=== PATIENT | male | born 1965 | race Caucasian/White ===

== ENCOUNTER 2016-03-20 19:31 | Emergency (ER) | payer SELFPAY ==
[~2016-03-20] VITALS: Ht 170.2 cm; Wt 72.7 kg
[~2016-03-20 19:31] MED LIST: GENT3.5O18 OU; SULF1TAB23 PO
--- NOTE | 2016-03-20 19:58 | Diagnostic Imaging Report ---
INDICATION: Fall yesterday. Pain and swelling. EXAMINATION: Three views of the right ankle were obtained. FINDINGS: There is considerable swelling over the lateral malleolus. Ankle mortise appears intact. There is suggestion of a very tiny avulsion type fracture of the tip of the fibula. The plafond of the talus is smooth with no fracture. The tibia shows a tiny bony density along the tip of the medial malleolus which could represent tiny avulsion injury or a small accessory ossicle. IMPRESSION: Considerable soft tissue swelling with question of minimal avulsion type fractures of the tip of the medial and lateral malleolus, as described. If clinical symptoms indicate, MRI of the ankle would be sensitive for further evaluation of the fibular and tibial ligaments. Dictated by: Dictated on workstation # [id number]
[2016-03-20] MEDS ORDERED: SULF1TAB35 PO (20:41)
--- NOTE | 2016-03-20 20:41 | ED Lower Extremity ---
General Chief Complaint: Lower Extremity Stated Complaint: R ANKLE INJ Nursing Triage Note: To ED with complaints of right ankle injury yesterday after jumping off his porch to catch his dog. Patient denies any other injuries. Nursing Sepsis Screen: No Definite Risk Source: patient Exam Limitations: no limitations History of Present Illness Time seen by provider: 20:38 Initial Comments To ER with pain to the right ankle. 2 days ago he tripped off of his porch twisting the ankle. He's had significant pain redness and swelling since then. Onset: just prior to arrival Severity: moderate Pain/Injury Location: right ankle Method of Injury: fell, twisted Modifying Factors: Worse With Movement Allergies and Home Medications Allergies Coded Allergies: Penicillins (Verified Allergy, Intermediate, HIVES, 11/08/11) bacitracin (Unverified Allergy, Unknown, 09/19/14) neomycin (Unverified Allergy, Unknown, 09/19/14) polymyxin B (Unverified Allergy, Unknown, 09/19/14) Home Medications Sulfamethoxazole/Trimethoprim 1 Each Tablet #14 1 EACH PO BID Prescribed by: SAWYER ADAM on 03/20/162040 Constitutional: see HPI EENTM: see HPI Cardiovascular: no symptoms reported Genitourinary: no symptoms reported Musculoskeletal: see HPI Skin: no symptoms reported Psychiatric/Neurological: No Symptoms Reported Past Rjbqsmp-Cuvpon-Coctdc Hx Patient Social History Alcohol Use: Denies Use Recreational Drug Use: No Smoking Status: Never a Smoker Former Smoker/When Quit: Nov 05, 2009 Recent Foreign Travel: No Contact w/Someone Who Travel: No Recent Infectious Disease Expo: No Recent Hopitalizations: No Physical Abuse Screen: No Sexual Abuse: No Immunizations Up To Date Tetanus Booster (TDap): Unknown Seasonal Allergies Seasonal Allergies: No Surgeries HX Surgeries: No (UNKNOWN) Respiratory Hx Respiratory Disorders: No Cardiovascular Hx Cardiac Disorders: No Neurological Hx Neurological Disorders: No Reproductive System Hx Reproductive Disorders: No Genitourinary Hx Genitourinary Disorders: No Gastrointestinal Hx Gastrointestinal Disorders: No Musculoskeletal Hx Musculoskeletal Disorders: No Endocrine Hx Endocrine Disorders: No HEENT HX ENT Disorders: Yes (CHRONIC NASAL CONGESTION) Cancer Hx Cancer: No Psychosocial Hx Psychiatric Problems: Yes (POLYSUBSTANCE ABUSE) Integumentary HX Skin/Integumentary Disorder: No Blood Transfusions Hx Blood Disorders: No Family Medical History Significant Family History: No Pertinent Family Hx Physical Exam Vital Signs Vital Sign - Last 12Hours 03/20/16 20:20 Temp 98.9 Pulse 95 Resp 18 B/P 148/85 Pulse Ox 98 O2 Delivery Room Air Capillary Refill : Less Than 3 Seconds General Appearance: WD/WN no apparent distress HEENT: PERRL/EOMI normal ENT inspection Neck: non-tender full range of motion Respiratory: no respiratory distress no accessory muscle use Gastrointestinal: non tender soft Hips: bilateral hip non-tender, bilateral hip normal inspection, bilateral hip normal range of motion Legs: bilateral leg non-tender, bilateral leg normal inspection, bilateral leg normal range of motion Knees: bilateral knee non-tender, bilateral knee normal inspection, bilateral knee normal range of motion Ankles: right ankle ecchymosis, right ankle limited range of motion, right ankle pain, right ankle soft tissue tenderness, right ankle swelling, right ankle other (slight erythema and warmth as well) Feet: bilateral foot non-tender, bilateral foot normal inspection Neurologic/Psychiatric: alert normal mood/affect oriented x 3 other (patient has a history of methamphetamine abuse. He is noted to have sores on both of his upper extremities, rhythmic movements of the mouth and lips and seems unable to sit still tonight.) Skin: normal color warm/dry other (erythema/ecchymosis to the right ankle) Progress/Results/Core Measures Results/Orders My Orders Orders-SAWYER ADAM APRN Ankle, Right, 3 Views (03/20/16 19:35) Hydrocodone/Apap 5/325 Tablet (Lortab 5 (03/20/16 20:45) Medications Given in ED Current Medications Medications Dose Ordered Sig/Shubham Route Start Time Stop Time Status Last Admin Dose Admin Acetaminophen/ Hydrocodone Bitart 1 tab ONCE ONCE PO 03/20/16 20:45 03/20/16 20:46 DC 03/20/16 20:56 1 TAB Vital Signs/I&O Vital Sign - Last 12Hours 03/20/16 03/20/16 20:20 20:56 Temp 98.9 98.9 Pulse 95 Resp 18 B/P 148/85 Pulse Ox 98 O2 Delivery Room Air Blood Pressure Mean: 106 Departure Communication Progress Notes 2040-patient placed in a posterior short leg and stirrup style splint using Ortho-Glass. Impression Impression: Primary Impression: Ankle sprain Qualified Code: S93.401A - Sprain of unspecified ligament of right ankle, initial encounter Disposition: HOME, SELF-CARE Condition: Stable Departure-Patient Inst. Decision time for Depature: 20:40 Referrals: JEOVANNY DANIEL MD, DAVID G DPM LASHAWN URBAN MD,LUCY AYALA,LOCAL PHYSICIAN (PCP) Primary Care Physician SAGAR VILLAFANA MD,APRIL GERARDO,NEHEMIAH Banks DPM Patient Instructions: Ankle Sprain Add. Discharge Instructions: 1. Tylenol and Motrin for pain 2. Keep the foot elevated as much as possible. This will help with throbbing and swelling. 3. Antibiotics as directed 4. Follow-up with orthopedic surgeon of your choosing or your regular family physician to schedule an MRI of the ankle. We are concerned about ligamentous injury given the degree of swelling of the appearance of your x-ray All discharge instructions reviewed with patient and/or family. Voiced understanding. Scripts Sulfamethoxazole/Trimethoprim (Bactrim Ds Tablet)1 Each Tablet1 Each PO BID #14 TAB Prov:SAWYER ADAM RN INTERN 03/20/16 SAWYER ADAM APRN Mar 20, 2016 20:41
[2016-03-20] MEDS ORDERED: HYDROcodone/APAP 5 MG/325 MG (LORTAB) TAB PO ONE (20:45)
[2016-03-20 21:00] VITALS: BP 146/88
== END 2016-03-20 21:00 | disposition home or self-care (01) ==
LOC: EDUNIT# 19:31 → ER 19:32
DX: S93.401A Sprain of unspecified ligament of right ankle, initial encounter (principal); W17.89XA Other fall from one level to another, initial encounter; Y92.018 Other place in single-family (private) house as the place of occurrence of the external cause; Y99.8 Other external cause status
CPT/HCPCS: 29515; 73610

== ENCOUNTER 2017-02-16 15:29 | Emergency (ER) | payer SELFPAY ==
[~2017-02-16] VITALS: Ht 175.3 cm; Wt 74.8 kg
[~2017-02-16 15:29] MED LIST changes: +SULF1TAB35 PO
--- OUTSIDE RECORDS SUMMARY | 2017-02-16 15:35 | XMS REPORT ---
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 Name Role Phone DAIN ESCOBAR CP Unavailable Allergies, Adverse Reactions, Alerts Substance Reaction Event Type Penicillin V Potassium Info Not Available Drug Allergy Problems Problem Type Condition ICD-9 Code Onset Dates Condition Status Assessment Restless legs syndrome [RLS] 333.94 Active Problem Restless legs syndrome [RLS] 333.94 Active Assessment Acute sinusitis, unspecified 461.9 Active Assessment Elevated serum creatinine 790.99 Active Problem Pain in soft tissues of limb 729.5 Active Problem Acute sinusitis, unspecified 461.9 Active Problem Elevated serum creatinine 790.99 Active Problem Other, mixed, or unspecified nondependent drug abuse, unspecified 305.90 Active Problem Unspecified viral hepatitis C without hepatic coma 070.70 Active Problem Pain in joint, hand 719.44 Active Problem Allergic rhinitis, cause unspecified 477.9 Active Medications Medication Code System Code Instructions Start Date End Date Status Dosage Flonase [facility] [address]-88 50 mcg/actuation Nasally Once a day Nov 14, 2012 1 sprays by Nasal route 2 times per [place] [address]-19 10 MG Orally Once a day Dec 12, 2013Nov 1 Tablet 2 times per day for 5 days Take at 8 am and noon. fexofenadine NDC 0 180 mg oral daily Nov 14, 2012 1 tablet by Oral route 1 time [place] [address]-79 5 MG Orally daily at hs prn for restless leg Nov 14, 2012 1 tablet by Oral route 1 time per day PRN at bedtime, for leg pain Procedures Procedure Coding System Code Date VENIPUNCT, ROUTINE* CPT-4 89146 Nov 14, 2014 Office Visit, Est Pt., Level 3 CPT-4 29683 Nov 14, 2014 COMPREHEN METABOLIC PANEL CPT-4 04158 Nov 14, 2014 Vital Signs Date/Time: Nov 14, 2014 Temperature 98.1 F Weight 145.8 lbs Height 69 in BMI 21.53 Index Blood Pressure Diastolic 70 mmHg Blood Pressure Systolic 112 mmHg Cardiac Monitoring Heart Rate 88 bpm Results Name Result Date Reference Range Unit Abnormality Flag ROUTINE VENIPUNCTURE CMP Summary Purpose eClinicalWorks Submission
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
[2017-02-16 16:51] LABS: BILIRUBIN,URINE NEGATIVE (NEGATIVE); KETONES,URINE NEGATIVE (NEGATIVE); LEUKOCYTE ESTERASE ,URINE NEGATIVE (NEGATIVE); NITRITE,URINE NEGATIVE (NEGATIVE); PH,URINE 8 (5-9); PROTEIN,URINE NEGATIVE (NEGATIVE); UROBILINOGEN,URINE NORMAL (NORMAL)
--- NOTE | 2017-02-16 17:03 | ED Abdominal Pain ---
General Chief Complaint: Abdominal/GI Problems Stated Complaint: ABD PAIN Nursing Triage Note: Pt c/o RLQ abd pain starting approx 3 hours [employer] Sepsis Screen: No Definite Risk Source of Information: Patient Exam Limitations: No Limitations History of Present Illness Time Seen By Provider: 17:03 Initial Comments 51-year-old male patient presents to the emergency department with complaints of right lower quadrant pain radiating around into the right flank and back for approximately 3 hours prior to arrival. Reports pain is improved at this time. Denies hematuria, dysuria, frequency. Does have a history kidney stones. Location Injury Occurred: denies known injury Timing/Duration: 1-3 Hours, Other (improved) Severity/Quality: Sharp Location: RLQ Radiation: Back (right low back), Flank (right) Activities at Onset: None Modifying Factors: Worsens With Palpation Allergies and Home Medications Allergies Coded Allergies: Penicillins (Verified Allergy, Intermediate, HIVES, 11/08/11) bacitracin (Unverified Allergy, Unknown, 09/19/14) neomycin (Unverified Allergy, Unknown, 09/19/14) polymyxin B (Unverified Allergy, Unknown, 09/19/14) Review of Systems Constitutional: No chills, No dizziness, No fever, No malaise Respiratory: Denies Cough, Denies Shortness of Air, Denies SOA With Exertion Cardiovascular: Denies Chest Pain, Denies Irregular Heart Rate, Denies Lightheadedness, Denies Syncope Gastrointestinal: See HPI, Denies Abdomen Distended, Abdominal Pain, Denies Blood Streaked Stools, Denies Constipated, Denies Diarrhea, Denies Nausea, Denies Poor Appetite, Denies Poor Fluid Intake, Denies Vomiting Genitourinary: See HPI, Denies Burning, Denies Frequency, Flank Pain, Denies Hematuria, Pain Musculoskeletal: see HPI, back pain, No joint pain Skin: no symptoms reported Psychiatric/Neurological: No Symptoms Reported All Other Systems Reviewed Negative Unless Noted: Yes (Negative excepted noted.) Past Bndscxm-Evqogk-Bxzcxa Hx Patient Social History Alcohol Use: Denies Use Recreational Drug Use: Yes Smoking Status: Never a Smoker Recent Foreign Travel: No Contact w/Someone Who Travel: No Recent Infectious Disease Expo: No Recent Hopitalizations: No Immunizations Up To Date Tetanus Booster (TDap): Unknown Seasonal Allergies Seasonal Allergies: No Surgeries History of Surgeries: No (UNKNOWN) Respiratory History of Respiratory Disorde: No Cardiovascular History of Cardiac Disorders: No Neurological History of Neurological Disord: No Reproductive System Hx Reproductive Disorders: No Gastrointestinal History of Gastrointestinal Di: No Musculoskeletal History of Musculoskeletal Dis: No Endocrine History of Endocrine Disorders: No Cancer History of Cancer: No Psychosocial History of Psychiatric Problem: Yes (POLYSUBSTANCE ABUSE) Integumentary History of Skin or Integumenta: No Blood Transfusions History of Blood Disorders: No Reviewed Nursing Assessment Reviewed/Agree w Nursing PMH: Yes Family Medical History Significant Family History: No Pertinent Family Hx Physical Exam Vital Signs VS - Last 72 Hours, by Label 02/16/17 15:54 Temp 94.0 Pulse 68 Resp 18 B/P (MAP) 147/91 (109) Pulse Ox 99 O2 Delivery Room Air Capillary Refill : Less Than 3 Seconds General Appearance: WD/WN, no apparent distress, other HEENT: PERRL/EOMI, pharynx normal Neck: supple, normal inspection Respiratory: lungs clear, normal breath sounds, no respiratory distress, no accessory muscle use Cardiovascular: normal peripheral pulses, regular rate, rhythm, no edema, no murmur Gastrointestinal: normal bowel sounds, soft, no organomegaly, No distended, guarding (mild guarding RLQ and rt flank), No rebound, tenderness (RLQ, rt flank tenderness) Back: normal inspection, no vertebral tenderness, CVA tenderness (R) (weak positive CVA tenderness on the right), No CVA tenderness (L) Neurologic/Psychiatric: alert, normal mood/affect, oriented x 3 Skin: normal color, warm/dry Progress/Results/Core Measures Results/Orders Lab Results Laboratory Tests Test 02/16/17 16:46 Range/Units Urine Color YELLOW Urine Clarity CLEAR Urine pH 8 5-9 Urine Specific Lyles 1.015 L 1.016-1.022 Urine Protein NEGATIVE NEGATIVE Urine Glucose (UA) NEGATIVE NEGATIVE Urine Ketones NEGATIVE NEGATIVE Urine Nitrite NEGATIVE NEGATIVE Urine Bilirubin NEGATIVE NEGATIVE Urine Urobilinogen NORMAL NORMAL MG/DL Urine Leukocyte Esterase NEGATIVE NEGATIVE Urine RBC (Auto) 5+ H NEGATIVE Urine RBC TNTC H /HPF Urine WBC RARE /HPF Urine Crystals NONE /LPF Urine Bacteria TRACE /HPF Urine Casts NONE /LPF Urine Mucus NEGATIVE /LPF Urine Culture Indicated NO Urine Opiates Screen NEGATIVE NEGATIVE Urine Oxycodone Screen NEGATIVE NEGATIVE Urine Methadone Screen NEGATIVE NEGATIVE Urine Propoxyphene Screen NEGATIVE NEGATIVE Urine Barbiturates Screen NEGATIVE NEGATIVE Ur Tricyclic Antidepressants Screen NEGATIVE NEGATIVE Urine Phencyclidine Screen NEGATIVE NEGATIVE Urine Amphetamines Screen POSITIVE H NEGATIVE Urine Methamphetamines Screen NEGATIVE NEGATIVE Urine Benzodiazepines Screen NEGATIVE NEGATIVE Urine Cocaine Screen NEGATIVE NEGATIVE Urine Cannabinoids Screen POSITIVE H NEGATIVE My Orders Orders - JANN WANG Drug Screen Stat (Urine) (02/16/17 16:36) Ua Culture If Indicated (02/16/17 16:36) Ketorolac Injection (Toradol Injection) (02/16/17 17:24) Ct Abd/Pelvis Wo(Kidney Stone) (02/16/17 17:24) Phenazopyridine Tablet (Pyridium Tablet) (02/16/17 17:30) Medications Given in ED Current Medications Medications Dose Ordered Sig/Shubham Route Start Time Stop Time Status Last Admin Dose Admin Phenazopyridine HCl 100 mg ONCE ONCE PO 02/16/17 17:30 02/16/17 17:31 DC 02/16/17 18:07 100 MG Vital Signs/I&O Vital Sign - Last 12Hours 02/16/17 15:54 Temp 94.0 Pulse 68 Resp 18 B/P (MAP) 147/91 (109) Pulse Ox 99 O2 Delivery Room Air Blood Pressure Mean: 109 Diagnostic Imaging Diagonstic Imaging: CT Plain Films/CT/US/NM/MRI: abdomen, pelvis Reviewed: Reviewed by Me (radiology report reviewed by me) Departure Impression Impression: Primary Impression: Right nephrolithiasis Disposition: 01 HOME, SELF-CARE Condition: Improved Departure-Patient Inst. Decision time for Depature: 18:29 Referrals: NO,LOCAL PHYSICIAN (PCP/Family) Primary Care Physician Patient Instructions: Kidney Stones (DC) Add. Discharge Instructions: All discharge instructions reviewed with patient and/or family. Voiced understanding. Medications as instructed. Tylenol extra strength over-the- counter as directed for pain. Ibuprofen 800 mg by mouth every 8 hours as needed for pain. Drink plenty of fluids. You may drink fluids that contain caffeine. Strain all urines. Follow-up with your primary care provider or Dr. Duenas as an outpatient for recheck. Return to the emergency department for worsened symptoms or any other concerns. Scripts Hydrocodone/Acetaminophen (Hydrocodon -Acetaminophen 5-325) 1 Each Tablet 1 EACH PO Q4H Y for PAIN, #6 TAB 0 Refills Prov: JANN WANG 02/16/17 Phenazopyridine HCl (Pyridium) 100 Mg Tablet 100 MG PO Q8H Y for pain, #14 TAB 0 Refills Prov: JANN WANG 02/16/17 Tamsulosin HCl (Flomax) 0.4 Mg Cap 0.4 MG PO DAILY, #7 CAP 0 Refills Prov: JANN WANG 02/16/17 Ciprofloxacin HCl (Ciprofloxacin HCl) 500 Mg Tablet 500 MG PO BID, #14 TAB 0 Refills Prov: JANN WANG 02/16/17 Ondansetron (Ondansetron Odt) 8 Mg Tab.rapdis 8 MG PO Q6H Y for NAUSEA/VOMITING-1ST LINE, #10 TAB 0 Refills Prov: JANN WANG 02/16/17 Work/School Note: Local Medical Staff Listing JANN WANG Feb 16, 2017 17:03
[2017-02-16 17:09] LABS: WBC,URINE RARE /HPF
[2017-02-16] MEDS ORDERED: KETOROLAC 60 MG/2 ML VIAL IM STA (17:24)
[2017-02-16] MEDS ORDERED: PHENAZOPYRIDINE 100 MG (PYRIDIUM) TABLET PO ONE (17:30)
--- NOTE | 2017-02-16 17:55 | Diagnostic Imaging Report ---
EXAMINATION: CT of the abdomen and pelvis without contrast from 02/16/2017. TECHNIQUE: Multiple contiguous axial images were obtained through the abdomen and pelvis without the use of intravenous contrast. INDICATION: Right lower quadrant pain with nausea for the last six hours. COMPARISONS: None. FINDINGS: The nonopacified abdominal viscera are limited, but no gross abnormality is seen within the liver or spleen. The adrenal glands and the gallbladder as well as the pancreas demonstrate no evidence for acute abnormalities. A well-circumscribed density in the right adrenal gland is noted and measures approximately 9.3 mm, somewhat small for characterization. A similar approximately 1-cm lesion in the left adrenal gland is also noted. Both could be followed at short-term interval with an adrenal protocol for better characterization with and without contrast. The left kidney demonstrates no acute disease with no hydronephrosis or nephrolithiasis appreciated. No left-sided ureteral stones appreciated. On the right, there is an approximately 4-mm stone in the distal right ureter proximal to the UVJ. This does cause moderate right-sided hydroureteronephrosis. No obstructive stones seen in the right kidney itself. There is fat stranding about the course of the left ureter. There is no ascites or free air. There is no lymphadenopathy. There is a fat-containing anterior abdominal wall hernia, umbilical in nature. The appendix is unremarkable. Within the pelvis, no significant free fluid is seen, and there is no free air. There is wall thickening of the urinary bladder, perhaps due to underdistention. Cystitis could, however, cause a similar appearance. Calcifications noted throughout the prostate gland. There is no inflammatory change about the bowel loops. There is no acute osseous abnormality. Within the visualized lung bases, multiple nonspecific subpleural nodules are seen bilaterally; right greater than left. Largest nodule within the peripheral aspect of the right lower lobe laterally measures 6.7 mm. There is an almost 5-mm nodule in the right middle lobe. Short-term interval followup in three months is recommended to assure stability and exclude a possible metastatic process. If there is an underlying known carcinoma, CT imaging of the entire chest could be performed as warranted. IMPRESSION: 1. Right-sided hydroureteronephrosis which is moderate in nature with just over 4-mm stone at the distal right ureter proximal to the UVJ. 2. Possible cystitis versus underdistention of the urinary bladder. Correlate with symptoms. 3. Multiple small nodules in the visualized lungs, see above description and recommendations. 4. Other incidental findings including bilateral adrenal lesions, see above description and recommendation. Dictated on workstation # [id number]
[2017-02-16] MEDS ORDERED: PHEN-639 PO (18:41)
[2017-02-16] MEDS ORDERED: HYDR-3812 PO (18:41)
[2017-02-16] MEDS ORDERED: TAMS0.4C98 PO (18:41)
[2017-02-16] MEDS ORDERED: CIPR500T4 PO (18:41)
[2017-02-16] MEDS ORDERED: ONDA8TAB13 PO (18:41)
[2017-02-16 19:13] VITALS: BP 147/91
== END 2017-02-16 19:13 | disposition home or self-care (01) ==
LOC: EDUNIT# 15:29 → ER 15:31
DX: N20.0 Calculus of kidney (principal)
CPT/HCPCS: 74176; 80306; 81000; 99284

== ENCOUNTER 2017-12-21 03:07 | Emergency (ER) | payer SELFPAY ==
[~2017-12-21] VITALS: Ht 175.3 cm; Wt 74.8 kg
[~2017-12-21 03:07] MED LIST changes: +ACHD5005 PO; +CIPR500T4 PO; +ONDA8TAB13 PO; +PHEN-639 PO; +TAMS0.4C98 PO
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
[2017-12-21] MEDS ORDERED: LIDOCAINE 1% INJ 20 ML 20 ML VIAL ONE (03:51)
[2017-12-21] MEDS ORDERED: IBUPROFEN 800 MG (MOTRIN) TAB PO STA (03:57)
[2017-12-21] MEDS ORDERED: CEPHALEXIN 250 MG (KEFLEX) CAP PO STA (03:57)
[2017-12-21] MEDS ORDERED: LIDOCAINE 1% INJ 20 ML 20 ML VIAL INJ ONE (04:00)
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
[2017-12-21] MEDS ORDERED: CEPH500T PO (04:39)
[2017-12-21 04:44] VITALS: BP 152/99
== END 2017-12-21 04:45 | disposition home or self-care (01) ==
LOC: EDUNIT# 03:07 → ER 03:12
DX: S02.5XXA Fracture of tooth (traumatic), initial encounter for closed fracture (principal); S01.511A Laceration without foreign body of lip, initial encounter; R40.2142 Coma scale, eyes open, spontaneous, at arrival to emergency department; R40.2252 Coma scale, best verbal response, oriented, at arrival to emergency department; R40.2362 Coma scale, best motor response, obeys commands, at arrival to emergency department; Z88.0 Allergy status to penicillin; Z88.2 Allergy status to sulfonamides; Z88.8 Allergy status to other drugs, medicaments and biological substances; Y04.8XXA Assault by other bodily force, initial encounter
CPT/HCPCS: 12011; 64450

== ENCOUNTER 2018-04-19 22:57 | Emergency (ER) | payer SELFPAY ==
[~2018-04-19] VITALS: Ht 175.3 cm; Wt 79.4 kg
[~2018-04-19 22:57] MED LIST changes: +CEPH500T PO
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
[2018-04-20] MEDS ORDERED: NS IV 1000 ML 1,000 ML IV SCH (00:28)
[2018-04-20] MEDS ORDERED: KETOROLAC 30 MG/ML VIAL IVP ONE (00:30)
[2018-04-20] MEDS ORDERED: cefTRIAXone FOR IV USE 1,000 MG in WATER (STERILE) FOR INJECTION 10 ML IV ONE (00:30)
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
[2018-04-20 00:52] LABS: BILIRUBIN,URINE NEGATIVE (NEGATIVE); CLARITY,URINE CLEAR; COLOR,URINE YELLOW; GLUCOSE, URINE (UA) NEGATIVE (NEGATIVE); KETONES,URINE NEGATIVE (NEGATIVE); LEUKOCYTE ESTERASE ,URINE NEGATIVE (NEGATIVE); NITRITE,URINE NEGATIVE (NEGATIVE); PH,URINE 8 (5-9); PROTEIN,URINE NEGATIVE (NEGATIVE); UROBILINOGEN,URINE NORMAL (NORMAL)
[2018-04-20 01:01] LABS: AMORPHOUS SEDIMENT,UR MOD AMOR PHOSPHATE /LPF; BACTERIA,URINE LARGE /HPF
[2018-04-20 01:14] LABS: BASOPHILS % (AUTO) 0 % (0-10); EOSINOPHILS # (AUTO) 0.5 10^3/uL (0.0-0.3); EOSINOPHILS % (AUTO) 5 % (0-10); HEMATOCRIT 38 % (40-54); LYMPHOCYTES # (AUTO) 2.5 X 10^3 (1.0-4.0); LYMPHOCYTES % (AUTO) 23 % (12-44); MEAN CORPUSCULAR HEMOGLOBIN 30 PG (25-34); MEAN CORPUSCULAR HGB CONC 34 G/DL (32-36); MEAN CORPUSCULAR VOLUME 87 FL (80-99); MEAN PLATELET VOLUME 9.8 FL (7.4-10.4); MONOCYTES # (AUTO) 1.2 X 10^3 (0.0-1.0); MONOCYTES % (AUTO) 11 % (0-12); NEUTROPHILS # (AUTO) 6.9 X 10^3 (1.8-7.8); NEUTROPHILS % (AUTO) 62 % (42-75); PLATELET COUNT 263 10^3/uL (130-400); RED CELL DISTRIBUTION WIDTH 12.8 % (10.0-14.5); WHITE BLOOD COUNT 11.1 10^3/uL (4.3-11.0)
[2018-04-20 01:18] LABS: AMPHETAMINE SCREEN, URINE POSITIVE (NEGATIVE); BARBITURATE SCREEN URINE NEGATIVE (NEGATIVE); BENZODIAZEPINES SCREEN URINE NEGATIVE (NEGATIVE); CANNABINOID SCREEN, URINE POSITIVE (NEGATIVE); COCAINE SCREEN URINE NEGATIVE (NEGATIVE); METHADONE STAT NEGATIVE (NEGATIVE); METHAMPHETAMINE SCREEN URINE S POSITIVE (NEGATIVE); OPIATE SCREEN URINE NEGATIVE (NEGATIVE); OXYCODONE STAT NEGATIVE (NEGATIVE); PROPOXYPHENE STAT NEGATIVE (NEGATIVE); TRICYCLIC ANTIDEPRESSANTS SCRE NEGATIVE (NEGATIVE)
[2018-04-20 01:25] LABS: PROTHROMBIN TIME PATIENT 12.9 SEC (12.2-14.7)
[2018-04-20 01:34] LABS: ALANINE AMINOTRANSFERASE 104 U/L (0-55); ALBUMIN 3.6 GM/DL (3.2-4.5); ALKALINE PHOSPHATASE 76 U/L (40-136); BILIRUBIN,TOTAL 0.4 MG/DL (0.1-1.0); BUN/CREATININE RATIO 14; CALCIUM 8.9 MG/DL (8.5-10.1); CARBON DIOXIDE 25 MMOL/L (21-32); CHLORIDE 104 MMOL/L (98-107); GFR ESTIMATED > 60; GLUCOSE 104 MG/DL (70-105); POTASSIUM 3.6 MMOL/L (3.6-5.0); SODIUM 138 MMOL/L (135-145); TOTAL PROTEIN 6.7 GM/DL (6.4-8.2)
[2018-04-20] MEDS ORDERED: ONDA4TAB11 PO (02:15)
[2018-04-20 02:34] VITALS: BP 135/82
--- NOTE | 2018-04-20 07:06 | Diagnostic Imaging Report ---
PROCEDURE: CT urinary tract, rule out kidney stone. TECHNIQUE: Multiple contiguous axial images were obtained through the abdomen and pelvis without the use of intravenous contrast. INDICATION: Back pain. Evaluate for kidney stone. Comparison: CT abdomen and pelvis performed on 02/16/2017. Findings: There has been no significant change in 4 mm average diameter nodule in the right middle lobe and a 6 mm subpleural nodule in the right lower lobe. Given their stable appearance for over one year, no further followup is recommended. No pleural effusion. Visualized heart is normal in size. The liver, spleen, pancreas, and adrenal glands are normal. The gallbladder is contracted and not well evaluated. No findings to suggest acute cholecystitis. No biliary or pancreatic ductal dilatation is demonstrated. The kidneys are symmetric in size, without evidence of renal calculus or hydronephrosis. The visualized ureters are normal. Small bowel and colon are normal in course and caliber, without evidence of wall thickening or obstruction. The appendix is normal. No pneumoperitoneum, abdominal free fluid, or loculated collection. Increase in the number but not size of visualized mesenteric and retroperitoneal lymph nodes, similar in appearance to prior exam. The bladder is normal. The prostate gland is not enlarged. There is a small fat-containing paraumbilical hernia. The abdominal wall is otherwise unremarkable. Mild degenerative changes involve the spine. Mild degenerative changes are also noted in both hips. No acute osseous abnormality. Impression: No acute abdominal or pelvic pathology. No evidence of nephrolithiasis or hydronephrosis. Small pulmonary nodules in the right middle and right lower lobes are unchanged dating back to 02/16/2017. No further followup is recommended, per Fleischner Society 2017 guidelines for followup of incidental pulmonary nodules (Radiology, 2017 Prasanna;284(1):228-243). Increase in the number but not size of visualized mesenteric and retroperitoneal lymph nodes. This is unchanged compared to prior exam. Findings are in agreement with initial teleradiology report. Dictated by: Dictated on workstation # [id number]
== END 2018-04-20 02:35 | disposition home or self-care (01) ==
LOC: EDUNIT# 22:57 → ER 22:58
DX: I88.9 Nonspecific lymphadenitis, unspecified (principal); R91.8 Other nonspecific abnormal finding of lung field; R82.71 Bacteriuria; F12.10 Cannabis abuse, uncomplicated; F15.10 Other stimulant abuse, uncomplicated; F14.10 Cocaine abuse, uncomplicated; Z87.891 Personal history of nicotine dependence; Z88.0 Allergy status to penicillin; Z88.2 Allergy status to sulfonamides; Z88.1 Allergy status to other antibiotic agents; Z87.442 Personal history of urinary calculi
CPT/HCPCS: 36415; 74176; 80053; 80306; 81000; 83605; 85025; 85610; 85730; 87040; 87088

== ENCOUNTER 2018-07-21 11:27 | Emergency (ER) | payer SELFPAY ==
[~2018-07-21] VITALS: Ht 175.3 cm; Wt 74.8 kg
[~2018-07-21 11:27] MED LIST changes: +ONDA4TAB11 PO
[2018-07-21] MEDS ORDERED: LIDOCAINE 1% INJ 20 ML 20 ML VIAL ONE (11:57)
[2018-07-21] MEDS ORDERED: LIDOCAINE 1% INJ 20 ML 20 ML VIAL INJ ONE (12:00)
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
[2018-07-21 12:31] VITALS: BP 132/98
== END 2018-07-21 12:35 | disposition home or self-care (01) ==
LOC: EDUNIT# 11:27 → ER 11:29
DX: S91.011A Laceration without foreign body, right ankle, initial encounter (principal); F12.10 Cannabis abuse, uncomplicated; F15.10 Other stimulant abuse, uncomplicated; F14.10 Cocaine abuse, uncomplicated; Z88.0 Allergy status to penicillin; Z87.891 Personal history of nicotine dependence; Z87.442 Personal history of urinary calculi; Z88.1 Allergy status to other antibiotic agents; W26.8XXA Contact with other sharp object(s), not elsewhere classified, initial encounter

== ENCOUNTER 2018-09-07 06:28 | Emergency (ER) | payer SELFPAY ==
[~2018-09-07] VITALS: Ht 175.3 cm; Wt 74.8 kg
[2018-09-07] MEDS ORDERED: PRD20T PO (07:38)
[2018-09-07] MEDS ORDERED: CYCL10TA9 PO (07:38)
--- NOTE | 2018-09-07 07:38 | ED Back Pain ---
General Chief Complaint: Back Problems Stated Complaint: BACK PAIN Nursing Triage Note: ARRIVED VIA AMB TO ROOM 05. COMPLAINS OF MID BACK PAIN X2 WEEKS. NO INJURY. Nursing Sepsis Screen: No Definite Risk Source of Information: Patient Exam Limitations: No Limitations History of Present Illness Initial Comments Patient reports low central back pain for about 3 weeks that became worse about a week ago when he picked up a skill saw. He felt a popping sensation and had exacerbation of pain at that time. Pain is worse with movements and it is difficult to get out of bed. He denies any symptoms of pain, numbness or weakness in his legs. He denies bowel or bladder dysfunction. He last took ibuprofen yesterday evening. He denies any trauma. Allergies and Home Medications Allergies Coded Allergies: Penicillins (Verified Allergy, Intermediate, HIVES, 11/08/11) bacitracin (Unverified Allergy, Unknown, 09/19/14) neomycin (Unverified Allergy, Unknown, 09/19/14) polymyxin B (Unverified Allergy, Unknown, 09/19/14) Home Medications Cephalexin 500 Mg Tablet, 500 MG PO QID Prescribed by: GUERDA ORTIZ on 12/21/17 0439 Ciprofloxacin HCl 500 Mg Tablet, 500 MG PO BID Prescribed by: JANN WANG on 02/16/171840 Hydrocodone Bit/Acetaminophen 1 Each Tablet, 1 EACH PO Q4H PRN for PAIN Prescribed by: JANN WANG on 02/16/171840 Ondansetron 8 Mg Tab.rapdis, 8 MG PO Q6H PRN for NAUSEA/VOMITING-1ST LINE Prescribed by: JANN WANG on 02/16/171840 Ondansetron 4 Mg Tab.rapdis, 4 MG PO Q6H PRN for NAUSEA/VOMITING Prescribed by: DEO AKBAR on 04/20/18 0215 Phenazopyridine HCl 100 Mg Tablet, 100 MG PO Q8H PRN for pain Prescribed by: JANN WANG on 02/16/171840 Tamsulosin HCl 0.4 Mg Cap, 0.4 MG PO DAILY Prescribed by: JANN WANG on 02/16/171840 Past Bakjixa-Sbdqbq-Cinbon Hx Patient Social History Alcohol Use: Occasionally Uses Recreational Drug Use: Yes Drug of Choice: POT Smoking Status: Former Smoker Former Smoker, Quit: Mar 07, 2009 2nd Hand Smoke Exposure: No Recent Foreign Travel: No Contact w/Someone Who Travel: No Recent Infectious Disease Expo: No Recent Hopitalizations: No Immunizations Up To Date Tetanus Booster (TDap): Unknown Seasonal Allergies Seasonal Allergies: No Past Medical History Surgeries: No (UNKNOWN) Respiratory: No Cardiac: No Neurological: No Reproductive Disorders: No Genitourinary: Yes Kidney Stones Gastrointestinal: No Musculoskeletal: No Endocrine: No Cancer: No Psychosocial: Yes (POLYSUBSTANCE ABUSE) Integumentary: No Blood Disorders: No Family Medical History No Pertinent Family Hx Physical Exam Vital Signs Vital Signs - First Documented 09/07/18 07:10 Temp 98.0 Pulse 74 Resp 16 B/P (MAP) 154/93 (113) Pulse Ox 99 O2 Delivery Room Air Capillary Refill : Less Than 3 Seconds Height, Weight, BMI Height: 5'9.00" Weight: 165lbs. 3.0oz. 74.203127jt; 22.96 BMI Method:Stated Procedures/Interventions Suture Size: 4-0 Progress/Results/Core Measures Results/Orders My Orders Orders - MILO RAPP MD Cyclobenzaprine Tablet (Flexeril Tablet) (09/07/18 07:45) Ketorolac Injection (Toradol Injection) (09/07/18 07:45) Vital Signs/I&O 09/07/18 07:10 Temp 98.0 Pulse 74 Resp 16 B/P (MAP) 154/93 (113) Pulse Ox 99 O2 Delivery Room Air Blood Pressure Mean: 113 Departure Impression Primary Impression: Low back pain Qualified Codes: M54.5 - Low back pain Disposition: 01 HOME, SELF-CARE Condition: Stable Departure-Patient Inst. Decision time for Depature: 07:36 Referrals: NO,LOCAL PHYSICIAN (PCP/Family) Primary Care Physician Patient Instructions: Low Back Pain (DC) Add. Discharge Instructions: You may take ibuprofen up to 600 mg every 6 hours as needed for pain. Add Tylenol up to 500 mg every 6 hours as needed for additional pain relief. Use Tylenol carefully due to your history of hepatitis. Gentle heat on your lower back may also be helpful. Avoid heavy lifting, bending, or other strenuous activities until pain improves. Return to care if you have worsening symptoms and please follow-up with your primary care provider within the next week. Return to the emergency room promptly if you develop numbness of the groin, weakness or numbness of the legs, or difficulties controlling her bowel or bladder. All discharge instructions reviewed with patient and/or family. Voiced understanding. Scripts Cyclobenzaprine HCl (Cyclobenzaprine HCl) 10 Mg Tablet 10 MG PO Q8H PRN for SPASMS, #10 TAB 0 Refills Prov: MILO RAPP MD 09/07/18 Prednisone (Prednisone) 20 Mg Tab 40 MG PO DAILY, #6 TAB 0 Refills Prov: MILO RAPP MD 09/07/18 MILO RAPP MD Sep 07, 2018 07:38
[2018-09-07] MEDS ORDERED: KETOROLAC 30 MG/ML VIAL IM ONE (07:45)
[2018-09-07] MEDS ORDERED: CYCLOBENZAPRINE 10 MG (FLEXERIL) TAB PO ONE (07:45)
[2018-09-07 08:05] VITALS: BP 154/93
--- NOTE | 2018-09-07 08:05 | NUR ---
PT SLEEPING UPON DISCHARGE.
== END 2018-09-07 08:05 | disposition home or self-care (01) ==
LOC: EDUNIT# 06:28 → ER 06:31
DX: M54.5 Low back pain (principal); F12.10 Cannabis abuse, uncomplicated; Z87.442 Personal history of urinary calculi; Z87.891 Personal history of nicotine dependence; Z88.0 Allergy status to penicillin; Z88.1 Allergy status to other antibiotic agents; X50.0XXA Overexertion from strenuous movement or load, initial encounter
CPT/HCPCS: 96372; 99284

== ENCOUNTER 2019-02-28 22:57 | Emergency (ER) | payer SELFPAY ==
[~2019-02-28 22:57] MED LIST changes: +CYCL10TA9 PO; +PRD20T PO
--- NOTE | 2019-03-01 00:25 | NUR ---
INFORMED SAEED FROM FIELD LABORER HE WAS LEAVING, REPORTED HE WAS UPSET HE HAS NOT BEEN SEEN.
== END 2019-03-01 00:25 | disposition left against medical advice (07) ==
LOC: EDUNIT# 22:57 → ER 22:58
DX: M79.676 Pain in unspecified toe(s) (principal)

== ENCOUNTER 2019-05-05 23:12 | Inpatient (IN) | payer SELFPAY ==
[2019-05-02] MEDS: RT-ALBUTEROL/IPRATROPIUM 3 ML (DUONEB) VIAL INH SCH (18:50)
[~2019-05-05] VITALS: Ht 175 cm; Wt 81.2 kg
[~2019-05-05 23:12] MED LIST changes: -TAMS0.4C98 PO; +TMSL.4C PO
[2019-05-06] VITALS (12 sets, daily range): BP systolic 107–132; BP diastolic 58–69
[2019-05-06] MEDS ORDERED: LACTATED RINGERS 1,000 ML IV STA (00:04)
[2019-05-06 00:18] LABS: BASOPHILS % (AUTO) 0 % (0-10); EOSINOPHILS % (AUTO) 0 % (0-10); HEMATOCRIT 42 % (40-54); HEMOGLOBIN 14.6 G/DL (13.3-17.7); LYMPHOCYTES # (AUTO) 0.8 X 10^3 (1.0-4.0); LYMPHOCYTES % (AUTO) 6 % (12-44); MEAN CORPUSCULAR HEMOGLOBIN 30 PG (25-34); MEAN CORPUSCULAR HGB CONC 35 G/DL (32-36); MEAN CORPUSCULAR VOLUME 85 FL (80-99); MEAN PLATELET VOLUME 10.1 FL (7.4-10.4); MONOCYTES # (AUTO) 0.9 X 10^3 (0.0-1.0); MONOCYTES % (AUTO) 7 % (0-12); NEUTROPHILS # (AUTO) 12.1 X 10^3 (1.8-7.8); NEUTROPHILS % (AUTO) 87 % (42-75); PLATELET COUNT 209 10^3/uL (130-400); RED CELL DISTRIBUTION WIDTH 13.4 % (10.0-14.5); WHITE BLOOD COUNT 13.8 10^3/uL (4.3-11.0)
[2019-05-06 00:33] LABS: PROTHROMBIN TIME PATIENT 13.7 SEC (12.2-14.7)
[2019-05-06 00:39] LABS: ALANINE AMINOTRANSFERASE 93 U/L (0-55); ALBUMIN 3.8 GM/DL (3.2-4.5); ALKALINE PHOSPHATASE 50 U/L (40-136); BILIRUBIN,TOTAL 1.8 MG/DL (0.1-1.0); BUN/CREATININE RATIO 21; CALCIUM 9.1 MG/DL (8.5-10.1); CARBON DIOXIDE 18 MMOL/L (21-32); CHLORIDE 99 MMOL/L (98-107); CREATININE SERUM 0.91 MG/DL (0.60-1.30); GFR ESTIMATED > 60; GLUCOSE 119 MG/DL (70-105); POTASSIUM 5.5 MMOL/L (3.6-5.0); SODIUM 128 MMOL/L (135-145); TOTAL PROTEIN 7.6 GM/DL (6.4-8.2)
--- NOTE | 2019-05-06 00:46 | ED General ---
General Chief Complaint: General Problems/Pain Stated Complaint: R SHOULDER PAIN, BACK PAIN, CP, FEVER, N/V, Nursing Triage Note: Pt to Rm 4 via WC with sisters had bedside. PT c/o "right shoulder pain that goes into chest", nausea, lethargy. Pt is lethargic on arrival, needs assistance to get out of chair, alert to verbal stimuli. Family states he's been in this condition since yesterday afternoon. Nursing Sepsis Screen: No Definite Risk Source of Information: Patient, Family Exam Limitations: Other (appears alterred/intoxicated) (SO NG) Exam Limitations: Intoxication, Language Barrier (GUERDA ORTIZ MD) History of Present Illness Date Seen by Provider: May 06, 2019 Time Seen by Provider: 00:00 Initial Comments This is a 53 y/o male who presents to the ED with multiple complaints. Per pt and sister he has had R shoulder pain which radiated to his chest since yesterday afternoon. Pt mumbles and is hard to understand at time of evaluation; per family, he is easier to understand at baseline and that he has been at his current state for the past 3 days. Pt c/o of chest pressure and pain, diffuse u pper abd pain, and LBP as well. Pt additionally c/o Subjective fever but denies any N/V, diarrhea, constipation, dysuria, frequency, or any other sx. He admits to Marijuana and Meth use, with last meth use reported as "few days ago". He states he smokes Meth and adamantly denies IVDU. Further denies tobacco and ETOH use. Per sisters, Pt was incarcerated 7 years ago and tested positive for HepC while in shelter; never received any Tx. Timing/Duration: 2-3 Days Severity: Mild Modifying Factors: improves with Other (none reported) Associated Systoms: Chest Pain, Cough, Fever/Chills; No Nausea/Vomiting, No Rash, No Shortness of Air; Weakness (SO NG) Initial Comments Here with report of right-sided chest pain. Speech is difficult to understand which sisters report sometimes happens. Admits to methamphetamine use and drug use. Denies IV drug use. Fever noted. Patient's not very helpful with history. Timing/Duration: 2-3 Days Severity: Mild, Moderate Associated Systoms: Chest Pain, Cough, Fever/Chills, Weakness (GUERDA ORTIZ MD) Allergies and Home Medications Allergies Coded Allergies: Penicillins (Verified Allergy, Intermediate, HIVES, 11/08/11) bacitracin (Unverified Allergy, Unknown, 09/19/14) neomycin (Unverified Allergy, Unknown, 09/19/14) polymyxin B (Unverified Allergy, Unknown, 09/19/14) Home Medications Cephalexin 500 Mg Tablet, 500 MG PO QID Prescribed by: GUERDA ORTIZ on 12/21/17 0439 Ciprofloxacin HCl 500 Mg Tablet, 500 MG PO BID Prescribed by: JANN WANG on 02/16/171840 Cyclobenzaprine HCl 10 Mg Tablet, 10 MG PO Q8H PRN for SPASMS Prescribed by: MILO HUMPHREYS on 09/07/18 0738 Hydrocodone Bit/Acetaminophen 1 Each Tablet, 1 EACH PO Q4H PRN for PAIN Prescribed by: JANN WANG on 02/16/171840 Ondansetron 8 Mg Tab.rapdis, 8 MG PO Q6H PRN for NAUSEA/VOMITING-1ST LINE Prescribed by: JANN WANG on 02/16/171840 Ondansetron 4 Mg Tab.rapdis, 4 MG PO Q6H PRN for NAUSEA/VOMITING Prescribed by: DEO AKBAR on 04/20/18 0215 Phenazopyridine HCl 100 Mg Tablet, 100 MG PO Q8H PRN for pain Prescribed by: JANN WANG on 02/16/171840 Prednisone 20 Mg Tab, 40 MG PO DAILY Prescribed by: MILO HUMPHREYS on 09/07/18 0738 Tamsulosin HCl 0.4 Mg Cap, 0.4 MG PO DAILY Prescribed by: JANN WANG on 02/16/171840 Patient Home Medication List Home Medication List Reviewed: Yes (GUERDA ORTIZ MD) Review of Systems Review of Systems Constitutional: chills, fever (subjective), weakness EENTM: no symptoms reported Respiratory: cough; No short of breath Cardiovascular: chest pain; No edema Gastrointestinal: abdominal pain (diffuse upper abd); No constipation, No diarrhea, No nausea, No vomiting Genitourinary: No dysuria, No frequency Musculoskeletal: back pain Skin: No pruritus, No rash (SO NG) Constitutional: chills, fever (subjective), weakness EENTM: no symptoms reported Respiratory: see HPI Cardiovascular: see HPI, chest pain (right-sided) Gastrointestinal: no symptoms reported; No nausea, No vomiting Genitourinary: no symptoms reported Musculoskeletal: back pain; No muscle pain (GUERDA ORTIZ MD) All Other Systems Reviewed Negative Unless Noted: Yes (GUERDA ORTIZ MD) Past Tilqyfj-Kyatgp-Mhzroc Hx Past Med/Social Hx: Reviewed Nursing Past Med/Soc Hx (GUERDA ORTIZ MD) Patient Social History Alcohol Use: Denies Use Recreational Drug Use: Yes Drug of Choice: marijuana, meth Smoking Status: Former Smoker Former Smoker, Quit: Mar 07, 2009 2nd Hand Smoke Exposure: No Recent Foreign Travel: No Contact w/Someone Who Travel: No Recent Infectious Disease Expo: No Recent Hopitalizations: No Physical Abuse: No Sexual Abuse: No Mistreated: No Fear: No (SO NG [facility]) Immunizations Up To Date Tetanus Booster (TDap): Unknown (SO NG [facility]) Seasonal Allergies Seasonal Allergies: No (SO NG) Past Medical History Surgeries: Yes Respiratory: No Cardiac: No Neurological: No Reproductive Disorders: No Genitourinary: Yes Kidney Stones Gastrointestinal: Yes Hepatitis Musculoskeletal: No Endocrine: No Cancer: No Psychosocial: Yes (POLYSUBSTANCE ABUSE) Integumentary: No Blood Disorders: No (SO NG) Family Medical History Reviewed Nursing Family Hx (GUERDA ORTIZ MD) No Pertinent Family Hx (SO NG) No Pertinent Family Hx (GUERDA ORTIZ MD) Physical Exam-Suspected Sepsis Physical Exam Vital Signs Vital Signs - First Documented 05/05/19 23:55 Temp 37.1 Pulse 105 Resp 26 B/P (MAP) 107/66 (80) Pulse Ox 97 O2 Delivery Room Air (GUERDA ORTIZ MD) Vital Signs Capillary Refill : Less Than 3 Seconds (SO NG) Blood Pressure Mean: 80 Height, Weight, BMI Height: 5'9.00" Weight: 165lbs. 3.0oz. 74.907538lw; 25.00 BMI Method:Stated General Appearance: No Apparent Distress, Thin, Other (pt appears restless, mumbles and is hard to understand but understands and answers questions, follows direction; restless legs) HEENT: PERRL/EOMI, Pharynx Normal Neck: Normal Inspection, Supple Respiratory: Chest Non Tender, Lungs Clear, Normal Breath Sounds, No Accessory Muscle Use, No Respiratory Distress Cardiovascular: No Edema, No Gallop, No JVD, No Murmur, Tachycardia Gastrointestinal: No Pulsatile Mass, Non Tender, Soft Extremity: Normal Inspection, Non Tender, No Calf Tenderness, No Pedal Edema Neurologic/Psychiatric: Alert, Other (restless, somewhat altered state, apppears intoxicated) Skin: other (circular area on R distal forearm which is shaved) Lymphatic: No Adenopathy (SO NG [facility]) General Appearance: No Apparent Distress, Thin, Other (pt appears restless, mumbles and is hard to understand but understands and answers questions, follows direction; restless legs) HEENT: PERRL/EOMI, Pharynx Normal Neck: Normal Inspection, Non Tender, Supple Respiratory: Lungs Clear, Normal Breath Sounds, No Accessory Muscle Use, No Respiratory Distress Cardiovascular: No Murmur, Tachycardia Gastrointestinal: No Pulsatile Mass, Non Tender Back: Normal Inspection, No CVA Tenderness, No Vertebral Tenderness Extremity: Normal Inspection, Non Tender, No Calf Tenderness Neurologic/Psychiatric: Alert, Other (restless, somewhat altered state, apppears intoxicated) (GUERDA ORTIZ MD) Focused Exam Lactate Level 05/06/19 00:15: Lactic Acid Level 1.38 (GUERDA ORTIZ MD) Lactic Acid Level Laboratory Tests Test 05/06/19 00:15 Lactic Acid Level 1.38 MMOL/L (0.50-2.00) (GUERDA ORTIZ MD) Procedures/Interventions [facility]: 4-0 [facility] Progress/Results/Core Measures Suspected Sepsis Recent Fever Within 48 Hours: No Infection Criteria Present: None New/Unexplained Altered Menta: No Sepsis Screen: No Definite Risk SIRS Temperature: Pulse: 105 Respiratory Rate: 26 Laboratory Tests 05/06/19 00:03: White Blood Count 13.8H Blood Pressure 107 /66 Mean: 80 05/06/19 00:15: Lactic Acid Level 1.38 Laboratory Tests 05/06/19 00:03: Creatinine 0.91, INR Comment 1.0, Platelet Count 209, Total Bilirubin 1.8H (MADALYNJaimeSO [facility]) Results/Orders Lab Results Laboratory Tests Test 05/06/19 00:03 05/06/19 00:15 Range/Units White Blood Count 13.8 H 4.3-11.0 10^3/uL Red Blood Count 4.90 4.35-5.85 10^6/uL Hemoglobin 14.6 13.3-17.7 G/DL Hematocrit 42 40-54 % Mean Corpuscular Volume 85 80-99 FL Mean Corpuscular Hemoglobin 30 25-34 PG Mean Corpuscular Hemoglobin Concent 35 32-36 G/DL Red Cell Distribution Width 13.4 10.0-14.5 % Platelet Count 209 130-400 10^3/uL Mean Platelet Volume 10.1 7.4-10.4 FL Neutrophils (%) (Auto) 87 H 42-75 % Lymphocytes (%) (Auto) 6 L 12-44 % Monocytes (%) (Auto) 7 0-12 % Eosinophils (%) (Auto) 0 0-10 % Basophils (%) (Auto) 0 0-10 % Neutrophils # (Auto) 12.1 H 1.8-7.8 X 10^3 Lymphocytes # (Auto) 0.8 L 1.0-4.0 X 10^3 Monocytes # (Auto) 0.9 0.0-1.0 X 10^3 Eosinophils # (Auto) 0.0 0.0-0.3 10^3/uL Basophils # (Auto) 0.0 0.0-0.1 10^3/uL Neutrophils % (Manual) 80 % Lymphocytes % (Manual) 6 % Monocytes % (Manual) 4 % Band Neutrophils 10 % Blood Morphology Comment NORMAL Prothrombin Time 13.7 12.2-14.7 SEC INR Comment 1.0 0.8-1.4 Activated Partial Thromboplast Time 28 24-35 SEC Sodium Level 128 L 135-145 MMOL/L Potassium Level 5.5 H 3.6-5.0 MMOL/L Chloride Level 99 98-107 MMOL/L Carbon Dioxide Level 18 L 21-32 MMOL/L Anion Gap 11 5-14 MMOL/L Blood Urea Nitrogen 19 H 7-18 MG/DL Creatinine 0.91 0.60-1.30 MG/DL Estimat Glomerular Filtration Rate > 60 BUN/Creatinine Ratio 21 Glucose Level 119 H 70-105 MG/DL Calcium Level 9.1 8.5-10.1 MG/DL Corrected Calcium 9.3 8.5-10.1 MG/DL Total Bilirubin 1.8 H 0.1-1.0 MG/DL Aspartate Amino Transf (AST/SGOT) 63 H 5-34 U/L Alanine Aminotransferase (ALT/SGPT) 93 H 0-55 U/L Alkaline Phosphatase 50 40-136 U/L Troponin I < 0.028 <0.028 NG/ML Total Protein 7.6 6.4-8.2 GM/DL Albumin 3.8 3.2-4.5 GM/DL Lactic Acid Level 1.38 0.50-2.00 MMOL/L (GUERDA ORTIZ MD) My Orders Orders - GUERDA ORTIZ MD Cbc With Automated Diff (05/06/19 00:04) Comprehensive Metabolic Panel (05/06/19 00:04) Blood Culture (05/06/19 00:04) Sputum Culture (05/06/19 00:04) Urinalysis (05/06/19 00:04) Urine Culture (05/06/19 00:04) Protime With Inr (05/06/19 00:04) Partial Thromboplastin Time (05/06/19 00:04) Chest 1 View, Ap/Pa Only (05/06/19 00:04) Ed Iv/Invasive Line Start (05/06/19 00:04) Ekg Tracing (05/06/19 00:04) Troponin I (05/06/19 00:04) Vital Signs Adult Sepsis Patie Q15M (05/06/19 00:04) O2 (05/06/19 00:04) Remove Rings In Anticipation O (05/06/19 00:04) Lactic Acid Analyzer (05/06/19 00:04) Lactated Ringers (Lr 1000 Ml Iv Solution (05/06/19 00:04) Manual Differential (05/06/19 00:03) Drug Screen Stat (Urine) (05/06/19 01:42) Ns Iv 1000 Ml (Sodium Chloride 0.9%) (05/06/19 01:42) Ed Iv/Invasive Line Start (05/06/19 01:51) Ns Iv 1000 Ml (Sodium Chloride 0.9%) (05/06/19 01:51) Cefepime Injection (Maxipime Injection) (05/06/19 02:00) Vancomycin Injection (Vancomycin Injecti (05/06/19 02:00) (GUERDA ORTIZ MD) Medications Given in ED Current Medications Medications Dose Ordered Sig/Shubham Route Start Time Stop Time Status Last Admin Dose Admin Sodium Chloride 1,000 ml @ 0 mls/hr Q0M ONCE IV 05/06/19 01:42 05/06/19 01:43 DC 05/06/19 01:52 0 MLS/HR (GUERDA ORTIZ MD) Vital Signs/I&O 05/05/19 23:55 Temp 37.1 Pulse 105 Resp 26 B/P (MAP) 107/66 (80) Pulse Ox 97 O2 Delivery Room Air (GUERDA ORTIZ MD) Vital Signs/I&O Capillary Refill : Less Than 3 Seconds (SO NG) Blood Pressure Mean: 80 Progress Note : Time: 00:00 Progress Note Seen and Evaluated. History taking is limited as pt is not at his baseline cognition at the time of eval. Current Presentation in addition to hx of Methamphetamine use and possible IVDU, is concerning for acute cardiac event and possible sepsis. will do Cardiac and sepsis work up. (SO NG) Progress Note : Progress Note Have seen and evaluated the patient and agree with above except as indicated. I have directed the plan of care. Sepsis protocol initiated. LR 1 L bolus initiated. Monitor patient. 0155: Large right lower lobe pneumonia noted. Findings consistent with pneumonia with concerns for aspiration. Does also have history of methamphetamine abuse but denies IV drug use. Given his history, MRSA would be concerned as well. We will initiate cefepime 1 g IV as well as vancomycin 1500 mg IV. Blood pressure noted to be 89 systolic and repeat blood pressure was 94 systolic but map was 64. Given this, we will initiate high- volume fluid resuscitation and 2 more liters of normal saline ordered to complete the 30 mL/kg IV bolus. I did discuss the case with Dr. Kulkarni and she accepts patient for admission, inpatient status. Additional IV line initiated. Patient to be admitted to the ICU on severe sepsis protocol. Findings and concerns discussed with the patient and family who agree with plan. (GUERDA ORTIZ MD) ECG Initial ECG Impression Date: May 05, 2019 Initial ECG Impression Time: 23:57 Initial ECG Rate: 104 Initial ECG Rhythm: S.Tach Comment Sinus tachycardia with left atrial abnormality. Normal axis. No evidence of ST elevation DC. Similar to previous of 09/09/15. Interpreted by me. (GUERDA ORTIZ MD) Diagnostic Imaging Diagonstic Imaging: Xray Plain Films/CT/US/NM/MRI: chest Comments Right lower lobe pneumonia (GUERDA ORTIZ MD) Departure Communication (Admissions) Time/Spoke to Admitting Phy: 01:55 (GUERDA ORTIZ MD) Impression Primary Impression: Right lower lobe pneumonia Qualified Codes: J18.1 - Lobar pneumonia, unspecified organism Additional Impression: Methamphetamine abuse Disposition: 09 ADMITTED INPATIENT Condition: Stable Admissions Decision to Admit Reason: Admit from ER (General) Decision to Admit/Date: May 06, 2019 Time/Decision to Admit Time: 01:55 (GUERDA ORTIZ MD) Departure-Patient Inst. Referrals: NO,LOCAL PHYSICIAN (PCP/Family) Primary Care Physician SO NG May 06, 2019 00:46 GUERDA ORTIZ MD May 06, 2019 02:04
[2019-05-06 01:23] LABS: BAND NEUTROPHILS 10 %; LYMPHOCYTES % (MANUAL) 6 %; MONOCYTES % (MANUAL) 4 %; NEUTROPHILS % (MANUAL) 80 %
[2019-05-06 01:24] LABS: RBC MORPH NORMAL
[2019-05-06] MEDS ORDERED: NS IV 1000 ML 1,000 ML IV ONE ×2 (01:42→01:51)
[2019-05-06] MEDS ORDERED: VANCOMYCIN 1000 MG/VIAL ONE (01:56)
[2019-05-06] MEDS ORDERED: NS IV 500 ML 0 ML ONE (01:56)
[2019-05-06] MEDS ORDERED: NS (IVPB) 500 ML ONE (01:59)
[2019-05-06] MEDS ORDERED: CEFEPIME INJECTION 1,000 MG in WATER (STERILE) FOR INJECTION 10 ML IV ONE (02:00)
[2019-05-06] MEDS: VANCOMYCIN INJECTION 750 MG in NS (IVPB) 250 ML IV SCH ×2 (02:15→03:20)
--- NOTE | 2019-05-06 04:10 | History & Physical-Hospitalist ---
History of Present Illness HPI/Chief Complaint Pt is a 53yoCM with a history of illicit drug use who presented to the ER due right shoulder and chest pain. He states it started yesterday and felt like a rope was tied around his chest. He had difficulty taking a deep breath. He does complain of some shortness of breath. He has never had pneumonia before. He does admit to IV methamphetamine use but reports he uses clean needles every time and doesn't share. Source: patient Date Seen 05/06/19 Time Seen by a Provider: 04:03 Attending Physician Dajuan Kulkarni MD PCP No,Local Physician Referring Physician Date of Admission May 06, 2019 at 01:55 Home Medications & Allergies Home Medications Reviewed patient Home Medication Reconciliation performed by pharmacy medication reconciliations line service technician and/or nursing. Patients Allergies have been reviewed. Allergies Allergies Coded Allergies Penicillins (Verified Allergy, Intermediate, HIVES, 11/08/11) bacitracin (Unverified Allergy, Unknown, 09/19/14) neomycin (Unverified Allergy, Unknown, 09/19/14) polymyxin B (Unverified Allergy, Unknown, 09/19/14) Past Sfsklzj-Kkbtxm-Repltc Hx Past Med/Social Hx: Reviewed Nursing Past Med/Soc Hx Patient Social History Alcohol Use: Occasionally Uses Recreational Drug Use: Yes Drug of Choice: marijuana, meth Smoking Status: Former Smoker Former Smoker, Quit: Mar 07, 2009 2nd Hand Smoke Exposure: No Recent Foreign Travel: No Contact w/other who traveled: No Recent Hopitalizations: No Recent Infectious Disease Expo: No Immunizations Up To Date Tetanus Booster (TDap): Unknown Seasonal Allergies Seasonal Allergies: No Past Medical History Reproductive: No Genitourinary: Kidney Stones Gastrointestinal: Hepatitis History of Blood Disorders: No Family History Reviewed Nursing Family Hx No Pertinent Family Hx Review of Systems Constitutional: No chills, No fever; malaise EENTM: no symptoms reported Respiratory: cough; No orthopnea; short of breath Cardiovascular: see HPI, chest pain; No Hx of Intervention Gastrointestinal: no symptoms reported Genitourinary: no symptoms reported Musculoskeletal: no symptoms reported Skin: no symptoms reported Psychiatric/Neurological: No Symptoms Reported Physical Exam Physical Exam Vital Signs Vital Signs - First Documented 05/05/19 05/06/19 23:55 04:30 Temp 37.1 Pulse 105 Resp 26 B/P (MAP) 107/66 (80) Pulse Ox 97 O2 Delivery Room Air O2 Flow Rate 82.00 Capillary Refill : Less Than 3 Seconds Height, Weight, BMI Height: 5'9.00" Weight: 165lbs. 3.0oz. [id number]; 25.00 BMI Method:Stated General Appearance: No Apparent Distress, WD/WN HEENT: Moist Mucous Membranes; No Scleral Icterus (L), No Scleral Icterus (R) Respiratory: No Accessory Muscle Use, No Respiratory Distress, Crackles (right base) Cardiovascular: Regular Rate, Rhythm, No Murmur Gastrointestinal: Normal Bowel Sounds, Non Tender, Soft Extremity: Normal Capillary Refill, No Calf Tenderness Neurologic/Psychiatric: Alert, Oriented x3, Normal Mood/Affect Skin: Normal Color, Tattoos/Piercings Comments I attest to a focused exam. Results Results/Procedures Labs Laboratory Tests 05/06/19 00:03 Patient resulted labs reviewed. Imaging: Reviewed Imaging Films Assessment/Plan Admission Diagnosis Severe Sepsis Admission Status: Inpatient Order (span 2 midnights) Reason for Inpatient Admission: IV abx, severe sepsis, await cultures Assessment and Plan Severe Sepsis right sided PNA Continue on Vanc and Zosyn Met severe sepsis for hypotension on arrival Was given 30cc/kg bolus in ER BP much improved Lactic normal Hyponatremia Likely due to volume depletion Trend transaminitis Check hepatitis panel IV drug use Will check HIV status Encouraged cessation Diagnosis/Problems Diagnosis/Problems (1) Right lower lobe pneumonia Status: Acute Qualifiers: Pneumonia type: due to unspecified organism Qualified Codes: J18.1 - Lobar pneumonia, unspecified organism (2) Hyponatremia Status: Acute (3) Hyperkalemia Status: Acute (4) Methamphetamine abuse Status: Acute (5) Elevated liver enzymes Status: Acute (6) IV drug abuse Status: Acute (7) Severe sepsis DAJUAN KULKARNI MD May 06, 2019 04:10
[2019-05-06 04:11] LABS: BILIRUBIN,URINE NEGATIVE (NEGATIVE); CLARITY,URINE CLEAR; COLOR,URINE YELLOW; GLUCOSE, URINE (UA) NEGATIVE (NEGATIVE); KETONES,URINE NEGATIVE (NEGATIVE); LEUKOCYTE ESTERASE ,URINE NEGATIVE (NEGATIVE); NITRITE,URINE NEGATIVE (NEGATIVE); PROTEIN,URINE NEGATIVE (NEGATIVE)
[2019-05-06 04:17] LABS: WBC,URINE 0-2 /HPF
[2019-05-06 04:18] LABS: AMORPHOUS SEDIMENT,UR FEW AMOR URATES /LPF; BACTERIA,URINE TRACE /HPF
[2019-05-06 04:21] LABS: AMPHETAMINE SCREEN, URINE POSITIVE (NEGATIVE); BARBITURATE SCREEN URINE NEGATIVE (NEGATIVE); BENZODIAZEPINES SCREEN URINE NEGATIVE (NEGATIVE); CANNABINOID SCREEN, URINE NEGATIVE (NEGATIVE); COCAINE SCREEN URINE NEGATIVE (NEGATIVE); METHADONE STAT NEGATIVE (NEGATIVE); METHAMPHETAMINE SCREEN URINE S POSITIVE (NEGATIVE); OPIATE SCREEN URINE NEGATIVE (NEGATIVE); OXYCODONE STAT NEGATIVE (NEGATIVE); PROPOXYPHENE STAT NEGATIVE (NEGATIVE); TRICYCLIC ANTIDEPRESSANTS SCRE NEGATIVE (NEGATIVE)
--- NOTE | 2019-05-06 04:30 | NUR ---
AGUSTIN IRBY admitted to room 406-1, with an admitting diagnosis of Right lower lobe pneumonia, severe sepsis on 05/06/19 from ER via cart. AGUSTIN IRBY introduced to surroundings, call light, bed controls, phone, TV, temperature control, lights, meal times, smoking policy, visitor policy, side rail policy, bathrooms and showers. Patient Rights given to patient in the handbook. AGUSTIN IRBY verbalizes understanding that [facility] is not responsible for the loss or damage to any personal effects or valuables that are kept in the patients posession during their hospitalization. The following Patient Care Plans were discussed with the pt: Discharge Planning, infection,pain control and fluid volume. AGUSTIN IRBY verbalizes understanding of Interdisciplinary Patient Education. Patient was informed about the Rapid Response Team and its purpose. Pt drowzy and hard to keep awake during assessment. O2 appllied to assist with low sats, started off at 2 liters.
[2019-05-06] MEDS ORDERED: NS IV 1000 ML 1,000 ML ONE (04:41)
[2019-05-06] MEDS ORDERED: RT-ALBUTEROL/IPRATROPIUM 3 ML (DUONEB) VIAL ONE ×2 (04:53→06:06)
--- NOTE | 2019-05-06 05:30 | NUR ---
O2 increase to 3 lites, which decreased chest pain as O2 sat increase. at 4 liters chast painn down to 1to 2. RT here to do breathing tx due to tightness and wheezing
[2019-05-06] MEDS ORDERED: RT-ALBUTEROL/IPRATROPIUM 3 ML (DUONEB) VIAL INH PRN (06:15)
--- NOTE | 2019-05-06 06:15 | NUR ---
pt denies chest pain, remains drowzy, states been this way for few days. unable to complete admission questions at this time
[2019-05-06] MEDS: RT-ALBUTEROL/IPRATROPIUM 3 ML (DUONEB) VIAL INH SCH ×4 (06:19→22:26)
--- NOTE | 2019-05-06 07:00 | Diagnostic Imaging Report ---
INDICATION: Cough, fever and congestion. Comparison made with prior examination 09/09/2015. FINDINGS: There is a right base infiltrate suspect for pneumonia. There is a small right pleural effusion. Left lung is clear. There is no pneumothorax. Mediastinum is unremarkable. Heart size is normal. IMPRESSION: Right base infiltrate suspect for pneumonia with a small right pleural effusion. Dictated by: Dictated on workstation # [id number]
[2019-05-06] MEDS ORDERED: ONDANSETRON 4 MG/2 ML (SDV) Z0FRAN IVP PRN (07:45)
[2019-05-06] MEDS ORDERED: ACETAMINOPHEN 325 MG TABLET PO PRN (07:45)
[2019-05-06] MEDS ORDERED: NS IV 1000 ML 1,000 ML IV SCH (08:30)
[2019-05-06] MEDS: CEFEPIME 1,000 MG/SWFI 10 ML IV PUSH IV SCH ×6 (08:51→18:06)
[2019-05-06] MEDS: NS IV 1000 ML 1,000 ML IV SCH ×4 (08:51→20:51)
--- NOTE | 2019-05-06 13:09 | NUR ---
PATIENT COMPLAINED OF CHEST PAIN WHEN HE GOT UP TO USE THE BATHROOM. VITALS STABLE EKG DONE. DR ORTIZ NOTIFIED. NO NEW ORDERED. PATIENT REPORTED CHEST PAIN IS GONE AT THIS TIME.
[2019-05-06] MEDS: VANCOMYCIN 1 GM/NS 250 ML IVPB IV SCH ×2 (13:47)
[2019-05-06] MEDS ORDERED: FLU QUADRIvalent (5+ YOA) 2019-2020 (AFLURIA) 0.5 ML IM ONE (15:15)
--- NOTE | 2019-05-06 15:20 | NUR ---
DR ORTIZ NOTIFIED OF DVT SCORE. ORDERED SCD WHILE IN BED.
[2019-05-07] VITALS: BP 129/66
[2019-05-07] MEDS: CEFEPIME 1,000 MG/SWFI 10 ML IV PUSH IV SCH ×6 (00:32→11:12)
[2019-05-07] MEDS: VANCOMYCIN 1 GM/NS 250 ML IVPB IV SCH ×2 (02:08)
[2019-05-07] MEDS: NS IV 1000 ML 1,000 ML IV SCH ×3 (02:08→07:53)
[2019-05-07] MEDS: RT-ALBUTEROL/IPRATROPIUM 3 ML (DUONEB) VIAL INH SCH ×3 (02:30→10:42)
[2019-05-07 04:00] VITALS: BP 129/65
[2019-05-07 05:26] LABS: HEMOGLOBIN 12.5 G/DL (13.3-17.7); MEAN PLATELET VOLUME 10.5 FL (7.4-10.4); RED CELL DISTRIBUTION WIDTH 13.2 % (10.0-14.5); WHITE BLOOD COUNT 11.5 10^3/uL (4.3-11.0)
[2019-05-07 05:56] LABS: BUN/CREATININE RATIO 12; CALCIUM 8.8 MG/DL (8.5-10.1); CARBON DIOXIDE 20 MMOL/L (21-32); CHLORIDE 111 MMOL/L (98-107); CREATININE SERUM 0.67 MG/DL (0.60-1.30); GFR ESTIMATED > 60; GLUCOSE 108 MG/DL (70-105); POTASSIUM 3.7 MMOL/L (3.6-5.0); SODIUM 139 MMOL/L (135-145)
[2019-05-07 08:00] VITALS: BP 146/62
[2019-05-07 08:09] LABS: BILIRUBIN,DIRECT 0.3 MG/DL (0.0-0.3); BILIRUBIN,INDIRECT 0.2 MG/DL; BILIRUBIN,TOTAL 0.5 MG/DL (0.1-1.0); TOTAL PROTEIN 5.8 GM/DL (6.4-8.2)
[2019-05-07] MEDS ORDERED: IBUP-2185 PO (09:27)
[2019-05-07] MEDS ORDERED: ACET-2267 PO (09:27)
--- NOTE | 2019-05-07 09:27 | NUR ---
SPOKE WITH THE PT TO COMPLETE THE MED REC. PT DENIES TAKING ANY PRESCRIPTION MEDS. OTC MEDS: TYLENOL PRN IBUPROFEN PRN
[2019-05-07] MEDS ORDERED: CEFD300C3 PO (11:15)
[2019-05-07] MEDS ORDERED: FLU QUADRIvalent (5+ YOA) 2019-2020 (AFLURIA) 0.5 ML IM ONE (11:26)
[2019-05-07 11:44] VITALS: BP 146/62
[2019-05-07 13:45] LABS: HEPATITIS C ANTIBODY C Reactive (Non-Reactive)
--- NOTE | 2019-05-07 18:22 | Discharge Summary ---
Discharge Summary Hospital Course Was the Problem List Reviewed?: Yes Problems/Dx: (1) Right lower lobe pneumonia Status: Acute Qualifiers: Qualified Codes: J18.1 - Lobar pneumonia, unspecified organism (2) Hyponatremia Status: Resolved (3) Hyperkalemia Status: Resolved (4) Methamphetamine abuse Status: Acute (5) Elevated liver enzymes Status: Acute (6) IV drug abuse Status: Acute (7) Severe sepsis Status: Resolved Hospital Course Date of Admission: May 06, 2019 at 01:55 Admission Diagnosis : severe sepsis due to pneumonia Family Physician/Provider: Belkys,Local Physician Date of Discharge: 05/07/19 Discharge Diagnosis: severe sepsis due to pneumonia Hospital Course: Tobin Lozada is a 53-year-old male who was admitted with severe sepsis due to pneumonia. He was started on broad-spectrum antibiotics and improved quickly. His course was complicated by elevated liver enzymes which trended downward. His urine toxicology was positive for amphetamines which she had been using intravenously. He was encouraged to discontinue amphetamine use. His course was also complicated by electrolyte abnormalities which were mild and resolved. He was discharged with a course of Omnicef. He needs to establish care with a primary care physician. Labs and Pending Lab Test: Laboratory Tests 05/07/19 04:10: White Blood Count 11.5H, Red Blood Count 4.25L, Hemoglobin 12.5L, Hematocrit 37L , Mean Corpuscular Volume 87, Mean Corpuscular Hemoglobin 29, Mean Corpuscular Hemoglobin Concent 34, Red Cell Distribution Width 13.2, Platelet Count 219, Mean Platelet Volume 10.5H, Sodium Level 139, Potassium Level 3.7, Chloride Level 111H, Carbon Dioxide Level 20L, Anion Gap 8, Blood Urea Nitrogen 8, Creatinine 0.67, Estimat Glomerular Filtration Rate > 60, BUN/Creatinine Ratio 12, Glucose Level 108H, Calcium Level 8.8, Total Bilirubin 0.5, Direct Bilirubin 0.3, Indirect Bilirubin 0.2, Aspartate Amino Transf (AST/SGOT) 25, Alanine Aminotransferase (ALT/SGPT) 50, Alkaline Phosphatase 60, Total Protein 5.8L, Albumin 3.0L Microbiology 05/06/19 Urine Culture - Final, Complete NO GROWTH 05/06/19 Blood Culture - Preliminary, Resulted No growth Home Meds Active Cefdinir 300 Mg Capsule 300 Mg PO BID 5 Days Reported Ibuprofen 200 Mg Capsule 400-600 Mg PO Q8H PRN Tylenol Extra Strength (Acetaminophen) 500 Mg Tablet 1,000 Mg PO Q8H PRN Assessment/Pt Instructions take medications as prescribed. Complete her course of antibiotics even if you're feeling better. Establish care with a primary care physician. Discharge Planning: <30 minutes discharge planning Discharge Instructions Discharge Diet: No Restrictions Activity as Tolerated: Yes Discharge Physical Examination Vital Signs Vital Signs Date Time Temp Pulse Resp B/P (MAP) Pulse Ox O2 Delivery O2 Flow Rate FiO2 05/07/19 11:44 37.4 111 22 146/62 96 Room Air 05/07/19 04:00 3.00 General Appearance: No Apparent Distress, WD/WN Respiratory: Lungs Clear, Normal Breath Sounds, No Respiratory Distress Cardiovascular: Regular Rate, Rhythm, No Edema, No Murmur Gastrointestinal: Normal Bowel Sounds, Non Tender, Soft Extremity: Normal Inspection, Non Tender, No Pedal Edema Skin: Normal Color, Warm/Dry Neurologic/Psychiatric: Alert, Oriented x3, No Motor/Sensory Deficits, Normal Mood/Affect Allergies: Coded Allergies: bacitracin (Unverified Allergy, Unknown, 09/19/14) neomycin (Unverified Allergy, Unknown, 09/19/14) polymyxin B (Unverified Allergy, Unknown, 09/19/14) Discharge Summary Date of Admission May 06, 2019 at 01:55 Date of Discharge May 07, 2019 at 11:48 Discharge Date: May 07, 2019 Discharge Time: 11:48 Admission Diagnosis Severe Sepsis Discharge Diagnosis severe sepsis due to pneumonia (1) Right lower lobe pneumonia Status: Acute Qualifiers: Qualified Codes: J18.1 - Lobar pneumonia, unspecified organism (2) Hyponatremia Status: Resolved (3) Hyperkalemia Status: Resolved (4) Methamphetamine abuse Status: Acute (5) Elevated liver enzymes Status: Acute (6) IV drug abuse Status: Acute (7) Severe sepsis Status: Resolved Clinical Quality Measures DVT/VTE Risk/Contraindication: Risk Factor Score Per Nursin RFS Level Per Nursing on Admit: 4+=Very High VON LEWIS MD May 07, 2019 18:22
== END 2019-05-07 11:48 | disposition home or self-care (01) | DRG 871 ==
LOC: EDUNIT# 23:12 → ER 23:14 → ICU 05-06 01:55 → 4TH 05-06 04:06
PROVIDERS: ADMIT Family Medicine; ATTEND Family Medicine
DX: A41.9 Sepsis, unspecified organism (principal); R65.20 Severe sepsis without septic shock; J18.9 Pneumonia, unspecified organism; E87.1 Hypo-osmolality and hyponatremia; E87.5 Hyperkalemia; F15.10 Other stimulant abuse, uncomplicated; R74.8 Abnormal levels of other serum enzymes; Z87.891 Personal history of nicotine dependence; Z87.442 Personal history of urinary calculi; Z23 Encounter for immunization
CPT/HCPCS: 36415; 71045; 80048; 80053; 80074; 80076; 80306; 81000; 83605; 84484; 85007; 85027; 85610; 85730; 86703; 87040; 87088; 87449; 87899; 93005; 94640; 94664; 94760; 96361; 96365; 96366; 96375

== ENCOUNTER 2020-09-07 17:39 | Emergency (ER) | payer SELFPAY ==
[~2020-09-07] VITALS: Ht 175 cm; Wt 74.8 kg
[~2020-09-07 17:39] MED LIST changes: +ACET-2267 PO; +CEFD300C3 PO; -CIPR500T4 PO; +CIPR500T5 PO; +IBUP-2185 PO
--- NOTE | 2020-09-07 18:00 | ED Respiratory ---
General Chief Complaint: Respiratory Problems Stated Complaint: HEADACHE/BODY ACHES/FEVER Nursing Triage Note: PATIENT STATES SOB SINCE YESTERDAY. VERBALIZED FEVER 100 WITH BODY ACHES Source: patient Exam Limitations: no limitations History of Present Illness Date Seen by Provider: Sep 07, 2020 Time Seen by Provider: 19:36 Initial Comments Shortness of breath body aches fever since yesterday Timing/Duration: just prior to arrival Severity: moderate Associated Symptoms: cough, shortness of breath Allergies and Home Medications Allergies Coded Allergies: bacitracin (Unverified Allergy, Unknown, 09/19/14) neomycin (Unverified Allergy, Unknown, 09/19/14) polymyxin B (Unverified Allergy, Unknown, 09/19/14) Home Medications Acetaminophen 500 Mg Tablet, 1,000 MG PO Q8H PRN for PAIN-MILD (1-4), (Reported) Cefdinir 300 Mg Capsule, 300 MG PO BID Prescribed by: VON LEWIS on 05/07/19 1115 Ibuprofen 200 Mg Capsule, 400-600 MG PO Q8H PRN for PAIN-MILD (1-4), (Reported) Patient Home Medication List Home Medication List Reviewed: Yes Review of Systems Review of Systems Constitutional: see HPI, chills, fever, malaise EENTM: see HPI Respiratory: see HPI, cough, short of breath Cardiovascular: no symptoms reported Genitourinary: no symptoms reported Musculoskeletal: no symptoms reported Skin: no symptoms reported Psychiatric/Neurological: No Symptoms Reported Hematologic/Lymphatic: No Symptoms Reported Past Lcehyvv-Vnslgi-Ddojod Hx Patient Social History Tobacco Use?: No Substance use?: Yes Substance type: Marijuana Substance frequency: Daily Alcohol Use?: No Pt feels they are or have been: No Immunizations Up To Date Tetanus Booster (TDap): Unknown Influenza Vaccine Up-to-Date: No; Not Current Seasonal Allergies Seasonal Allergies: No Past Medical History Surgeries: Yes Respiratory: No Cardiac: No Neurological: No Reproductive Disorders: No Genitourinary: Yes Kidney Stones Gastrointestinal: Yes Hepatitis Musculoskeletal: No Endocrine: No Cancer: No Psychosocial: Yes (POLYSUBSTANCE ABUSE) Integumentary: No Blood Disorders: No Family Medical History Cardiovascular disease 19 MOTHER GRANDFATHER Neoplasm 19 MOTHER (BONE CANCER) G8 BROTHER ( WITHER FROM CANCER OR HEPATITIS) Respiratory disorder 19 FATHER No Pertinent Family Hx Physical Exam Vital Signs - First Documented 09/07/20 17:47 Temp 38.3 Pulse 95 Resp 20 B/P (MAP) 123/73 (90) Pulse Ox 96 O2 Delivery Room Air Capillary Refill : Less Than 3 Seconds Height: 5'9.00" Weight: 165lbs. 3.0oz. 74.707002ja; 24.00 BMI Method:Stated General Appearance: WD/WN, no apparent distress, other (Oxygen saturation 97% on room air without accessory muscle use or respiratory distress. No apparent dyspnea he is not tachycardic or hypotensive.) Neck: non-tender, full range of motion Respiratory: no respiratory distress, no accessory muscle use Cardiovascular: regular rate, rhythm, no murmur Gastrointestinal: normal bowel sounds, non tender, soft Neurologic/Psychiatric: alert, normal mood/affect, oriented x 3 Skin: normal color, warm/dry Procedures/Interventions Suture Size: 4-0 Progress/Results/Core Measures Suspected Sepsis SIRS Temperature: Pulse: 95 Respiratory Rate: 20 Laboratory Tests 09/07/20 17:57: White Blood Count 3.1L Blood Pressure 123 /73 Mean: 90 Laboratory Tests 09/07/20 17:57: Creatinine 0.77, Platelet Count 196, Total Bilirubin 0.4 Results/Orders Lab Results Laboratory Tests Test 09/07/20 17:47 09/07/20 17:57 Range/Units Influenza Type A (RT-PCR) Not Detected Not Detecte Influenza Type B (RT-PCR) Not Detected Not Detecte SARS-CoV-2 RNA (RT-PCR) Detected H Not Detecte White Blood Count 3.1 L 4.3-11.0 10^3/uL Red Blood Count 4.66 4.30-5.52 10^6/uL Hemoglobin 14.0 13.3-17.7 g/dL Hematocrit 41 40-54 % Mean Corpuscular Volume 88 80-99 fL Mean Corpuscular Hemoglobin 30 25-34 pg Mean Corpuscular Hemoglobin Concent 34 32-36 g/dL Red Cell Distribution Width 12.2 10.0-14.5 % Platelet Count 196 130-400 10^3/uL Mean Platelet Volume 9.9 9.0-12.2 fL Immature Granulocyte % (Auto) 0 % Neutrophils (%) (Auto) 42 42-75 % Lymphocytes (%) (Auto) 27 12-44 % Monocytes (%) (Auto) 28 H 0-12 % Eosinophils (%) (Auto) 3 0-10 % Basophils (%) (Auto) 0 0-10 % Neutrophils # (Auto) 1.3 L 1.8-7.8 10^3/uL Lymphocytes # (Auto) 0.8 L 1.0-4.0 10^3/uL Monocytes # (Auto) 0.9 0.0-1.0 10^3/uL Eosinophils # (Auto) 0.1 0.0-0.3 10^3/uL Basophils # (Auto) 0.0 0.0-0.1 10^3/uL Immature Granulocyte # (Auto) 0.0 0.0-0.1 10^3/uL Neutrophils % (Manual) 34 % Lymphocytes % (Manual) 36 % Monocytes % (Manual) 20 % Eosinophils % (Manual) 4 % Basophils % (Manual) 0 % Band Neutrophils 0 % Reactive Lymphocytes 6 % Blood Morphology Comment NORMAL D-Dimer 1.04 H 0.00-0.49 UG/ML Sodium Level 135 135-145 MMOL/L Potassium Level 3.9 3.6-5.0 MMOL/L Chloride Level 100 98-107 MMOL/L Carbon Dioxide Level 23 21-32 MMOL/L Anion Gap 12 5-14 MMOL/L Blood Urea Nitrogen 11 7-18 MG/DL Creatinine 0.77 0.60-1.30 MG/DL Estimat Glomerular Filtration Rate > 60 BUN/Creatinine Ratio 14 Glucose Level 97 70-105 MG/DL Calcium Level 8.8 8.5-10.1 MG/DL Corrected Calcium 9.0 8.5-10.1 MG/DL Total Bilirubin 0.4 0.1-1.0 MG/DL Aspartate Amino Transf (AST/SGOT) 43 H 5-34 U/L Alanine Aminotransferase (ALT/SGPT) 60 H 0-55 U/L Alkaline Phosphatase 71 40-136 U/L C-Reactive Protein High Sensitivity 1.40 H 0.00-0.50 MG/DL B-Type Natriuretic Peptide 28.9 <100.0 PG/ML Total Protein 7.0 6.4-8.2 GM/DL Albumin 3.8 3.2-4.5 GM/DL Procalcitonin 0.05 <0.10 NG/ML My Orders Orders - SAWYER ADAM APRN Covid 19 Inhouse Test (09/07/20 17:48) Influenza A And B By Pcr (09/07/20 17:48) Chest 1 View, Ap/Pa Only (09/07/20 17:59) BNP (09/07/20 17:59) Cbc With Automated Diff (09/07/20 17:59) Hs C Reactive Protein (09/07/20 17:59) Comprehensive Metabolic Panel (09/07/20 17:59) Procalcitonin (Pct) (09/07/20 17:59) Manual Differential (09/07/20 17:57) Fibrin Degradation Products (09/07/20 18:25) Ct Angio Chest W (09/07/20 18:49) Iohexol Injection (Omnipaque 350 Mg/Ml 1 (09/07/20 19:30) Received Contrast (Hold Metformin- Contr (09/07/20 19:30) Ns (Ivpb) (Sodium Chloride 0.9% Ivpb Bag (09/07/20 19:30) Acetaminophen Tablet/Caplet (Tylenol T (09/07/20 19:30) Ibuprofen Tablet (Motrin Tablet) (09/07/20 19:30) Medications Given in ED Current Medications Medications Dose Ordered Sig/Shubham Route Start Time Stop Time Status Last Admin Dose Admin Iohexol 100 ml ONCE ONCE IV 09/07/20 19:30 09/07/20 19:31 DC 09/07/20 19:38 67 ML Sodium Chloride 100 ml ONCE ONCE IV 09/07/20 19:30 09/07/20 19:31 DC 09/07/20 19:39 80 ML Vital Signs/I&O 09/07/20 17:47 Temp 38.3 Pulse 95 Resp 20 B/P (MAP) 123/73 (90) Pulse Ox 96 O2 Delivery Room Air Capillary Refill : Less Than 3 Seconds Blood Pressure Mean: 90 Departure Communication (Admissions) NAME: AGUSTIN IRBY [facility] REC#: [id number] PT STATUS: REG ER : 1965 PHYSICIAN: SAWYER ADAM APRN ADMIT DATE: 09/07/20/ER Signed Date of Exam:09/07/20 CT ANGIO CHEST W PROCEDURE: CT angiography of the chest with contrast. TECHNIQUE: Multiple contiguous axial images were obtained through the chest after uneventful bolus administration of intravenous contrast. 3D reconstructed CTA MIP acquisitions were also performed. Auto Exposure Controls were utilized during the CT exam to meet ALARA standards for radiation dose reduction. INDICATION: Shortness of breath. Bodyaches. Covid positive. Concern for PE. COMPARISON: Chest radiograph performed earlier the same date. FINDINGS: This helical CT pulmonary angiogram is diagnostic to the subsegmental level branches of the pulmonary artery and demonstrates no pulmonary emboli. The heart and great vessels are unremarkable. There is no pericardial effusion. There is no axillary, mediastinal or hilar adenopathy. Small amount of dependent atelectasis is seen in the lung bases. No focal consolidation or mass. No central endobronchial obstructing lesion. No pleural effusion or pneumothorax. Osseous structures appear normal. Limited views of the upper abdomen are unremarkable. IMPRESSION: No acute pulmonary embolus. Negative CT chest. Dictated by: Dictated on workstation # [id number] Dict: 09/07/201941 Trans: 09/07/201949 [facility] [id number] Interpreted by: MINA GONZALEZ DO Electronically signed by: MINA GONZALEZ DO 09/07/201949 Impression Primary Impression: COVID-19 Disposition: 01 HOME, SELF-CARE Condition: Stable Departure-Patient Inst. Decision time for Depature: 18:32 Referrals: NO,LOCAL PHYSICIAN (PCP/Family) Primary Care Physician Patient Instructions: COVID-19 ED Add. Discharge Instructions: 1. Tylenol and ibuprofen for pain control. Return to ER for any worsening. Stay quarantined for 10 days. Any of your contacts within the past 3 to 4 days should also be on quarantine for 10 days. All discharge instructions reviewed with patient and/or family. Voiced understanding. Work/School Note: Work Release Form Date Seen in the Emergency Department: Sep 07, 2020 Return to Work: Sep 18, 2020 SAWYER ADAM APRN Sep 07, 2020 18:00
[2020-09-07 18:05] LABS: BASOPHILS % (AUTO) 0 % (0-10); EOSINOPHILS # (AUTO) 0.1 10^3/uL (0.0-0.3); EOSINOPHILS % (AUTO) 3 % (0-10); HEMATOCRIT 41 % (40-54); LYMPHOCYTES # (AUTO) 0.8 10^3/uL (1.0-4.0); LYMPHOCYTES % (AUTO) 27 % (12-44); MEAN CORPUSCULAR HEMOGLOBIN 30 pg (25-34); MEAN CORPUSCULAR HGB CONC 34 g/dL (32-36); MEAN CORPUSCULAR VOLUME 88 fL (80-99); MEAN PLATELET VOLUME 9.9 fL (9.0-12.2); MONOCYTES # (AUTO) 0.9 10^3/uL (0.0-1.0); MONOCYTES % (AUTO) 28 % (0-12); NEUTROPHILS # (AUTO) 1.3 10^3/uL (1.8-7.8); NEUTROPHILS % (AUTO) 42 % (42-75); PLATELET COUNT 196 10^3/uL (130-400); WHITE BLOOD COUNT 3.1 10^3/uL (4.3-11.0)
[2020-09-07 18:13] LABS: ALBUMIN 3.8 GM/DL (3.2-4.5); CHLORIDE 100 MMOL/L (98-107); POTASSIUM 3.9 MMOL/L (3.6-5.0); SODIUM 135 MMOL/L (135-145)
[2020-09-07 18:14] LABS: CALCIUM 8.8 MG/DL (8.5-10.1)
[2020-09-07 18:15] LABS: GLUCOSE 97 MG/DL (70-105)
[2020-09-07 18:16] LABS: CARBON DIOXIDE 23 MMOL/L (21-32)
[2020-09-07 18:17] LABS: BILIRUBIN,TOTAL 0.4 MG/DL (0.1-1.0)
[2020-09-07 18:18] LABS: ALKALINE PHOSPHATASE 71 U/L (40-136)
[2020-09-07 18:19] LABS: CREATININE SERUM 0.77 MG/DL (0.60-1.30); GFR ESTIMATED > 60
[2020-09-07 18:20] LABS: BUN/CREATININE RATIO 14
[2020-09-07 18:22] LABS: ALANINE AMINOTRANSFERASE 60 U/L (0-55)
[2020-09-07 18:42] LABS: BAND NEUTROPHILS 0 %; BASOPHILS % (MANUAL) 0 %; EOSINOPHILS % (MANUAL) 4 %; LYMPHOCYTES % (MANUAL) 36 %; MONOCYTES % (MANUAL) 20 %; NEUTROPHILS % (MANUAL) 34 %; RBC MORPH NORMAL; REACTIVE LYMPHOCYTES 6 %
--- NOTE | 2020-09-07 18:49 | Diagnostic Imaging Report ---
EXAMINATION: Chest 1 view. HISTORY: Shortness of breath. COMPARISON: 05/06/2019. FINDINGS: The lung volumes are normal. No focal consolidation is seen. No large pleural effusion or pneumothorax is seen. The cardiomediastinal silhouette is prominent. No acute osseous abnormality is seen. IMPRESSION: Mild cardiomegaly. No overt pulmonary edema. Dictated by: Dictated on workstation # [id number]
[2020-09-07] MEDS ORDERED: NS 100 ML (IVPB) BAG IV ONE (19:30)
[2020-09-07] MEDS ORDERED: IOHEXOL 350 MG/ML 100 ML (OMNIPAQUE 350) VIAL IV ONE (19:30)
[2020-09-07] MEDS ORDERED: ACETAMINOPHEN 325 MG TABLET PO ONE (19:30)
[2020-09-07] MEDS ORDERED: IBUPROFEN TABLET 200 MG TAB PO ONE (19:30)
[2020-09-07] MEDS ORDERED: HOLD METFORMIN - RECEIVED CONTRAST 20 ML VIAL IV SCH (19:30)
--- NOTE | 2020-09-07 19:47 | Diagnostic Imaging Report ---
PROCEDURE: CT angiography of the chest with contrast. TECHNIQUE: Multiple contiguous axial images were obtained through the chest after uneventful bolus administration of intravenous contrast. 3D reconstructed CTA MIP acquisitions were also performed. Auto Exposure Controls were utilized during the CT exam to meet ALARA standards for radiation dose reduction. INDICATION: Shortness of breath. Bodyaches. Covid positive. Concern for PE. COMPARISON: Chest radiograph performed earlier the same date. FINDINGS: This helical CT pulmonary angiogram is diagnostic to the subsegmental level branches of the pulmonary artery and demonstrates no pulmonary emboli. The heart and great vessels are unremarkable. There is no pericardial effusion. There is no axillary, mediastinal or hilar adenopathy. Small amount of dependent atelectasis is seen in the lung bases. No focal consolidation or mass. No central endobronchial obstructing lesion. No pleural effusion or pneumothorax. Osseous structures appear normal. Limited views of the upper abdomen are unremarkable. IMPRESSION: No acute pulmonary embolus. Negative CT chest. Dictated by: Dictated on workstation # [id number]
[2020-09-07 20:21] VITALS: BP 127/65
== END 2020-09-07 20:20 | disposition home or self-care (01) ==
LOC: EDUNIT# 17:39 → ER 17:41
DX: U07.1 COVID-19 (principal)
CPT/HCPCS: 36415; 71045; 71275; 80053; 83880; 84145; 85007; 85027; 85379; 86141; 87636

== ENCOUNTER 2020-09-24 16:14 | Emergency (ER) | payer SELFPAY ==
[~2020-09-24] VITALS: Ht 175.2 cm; Wt 72.6 kg
[~2020-09-24 16:14] MED LIST changes: -SULF1TAB35 PO; +SULF1TAB38 PO
[2020-09-24 16:18] VITALS: BP 139/84
--- NOTE | 2020-09-24 16:28 | ED Integumentary General ---
General Stated Complaint: LUMP IN HAND, DRUG USER Source: patient Exam Limitations: no limitations History of Present Illness Date Seen by Provider: Sep 24, 2020 Time Seen by Provider: 16:17 Initial Comments Patient to the ER by private conveyance from home with chief complaint of lump in his hand after 8 days ago he injected some IV methamphetamines. He does not have allergies to anything and nor has he sought any treatment for it yet. It is not draining. He has had a tetanus vaccine in the last 5 years. Allergies and Home Medications Allergies Coded Allergies: bacitracin (Unverified Allergy, Unknown, 09/19/14) neomycin (Unverified Allergy, Unknown, 09/19/14) polymyxin B (Unverified Allergy, Unknown, 09/19/14) Home Medications Acetaminophen 500 Mg Tablet, 1,000 MG PO Q8H PRN for PAIN-MILD (1-4), (Reported) Cefdinir 300 Mg Capsule, 300 MG PO BID Prescribed by: VON LEWIS on 05/07/19 1115 Ibuprofen 200 Mg Capsule, 400-600 MG PO Q8H PRN for PAIN-MILD (1-4), (Reported) Patient Home Medication List Home Medication List Reviewed: Yes Review of Systems Review of Systems Constitutional: No chills, No diaphoresis EENTM: No ear discharge, No ear pain Respiratory: No cough, No short of breath Cardiovascular: No edema Gastrointestinal: No abdominal pain, No nausea Genitourinary: No discharge, No dysuria Musculoskeletal: No back pain; joint pain Skin: see HPI All Other Systems Reviewed Negative Unless Noted: Yes Past Rlkpxej-Lalpha-Qthwbs Hx Patient Social History 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 Immunizations Up To Date Tetanus Booster (TDap): Unknown Seasonal Allergies Seasonal Allergies: No Past Medical History Surgeries: Yes Respiratory: No Cardiac: No Neurological: No Reproductive Disorders: No Genitourinary: Yes Kidney Stones Gastrointestinal: Yes Hepatitis Musculoskeletal: No Endocrine: No Cancer: No Psychosocial: Yes (POLYSUBSTANCE ABUSE) Integumentary: No Blood Disorders: No Family Medical History Cardiovascular disease 19 MOTHER GRANDFATHER Neoplasm 19 MOTHER (BONE CANCER) G8 BROTHER ( WITHER FROM CANCER OR HEPATITIS) Respiratory disorder 19 FATHER No Pertinent Family Hx Physical Exam Vital Signs Capillary Refill : General Appearance: WD/WN, no apparent distress HEENT: PERRL/EOMI, pharynx normal Neck: full range of motion, normal inspection Cardiovascular: normal peripheral pulses, regular rate, rhythm Respiratory: no respiratory distress, no accessory muscle use Neurologic/Psychiatric: alert, normal mood/affect, oriented x 3 Skin: other (Erythematous, tense nodule on the dorsum of his left hand proximally consistent with an abscess. Fluctuant.) Procedures/Interventions I&D : Blade Size: 11 I & D Procedure: betadine prep (Chlorhexidine) Progress Clean the wound with chlorhexidine and sterile saline and made a 1 cm x 1 cm crosswise incision after anesthetizing with 1% lidocaine. 3 cc lidocaine were used. Loculations were broken up with a sterile cotton-tipped applicator. The wound was then flushed with 50 cc of sterile saline and then covered with sterile dry gauze and held in place with Coban. Patient tolerated procedure well Suture Size: 4-0 Departure Impression Primary Impression: Abscess of hand Disposition: 01 HOME, SELF-CARE Condition: Stable Departure-Patient Inst. Decision time for Depature: 16:44 Referrals: NO,LOCAL PHYSICIAN (PCP/Family) Primary Care Physician Patient Instructions: ABSCESS Add. Discharge Instructions: Keep the wound clean with regular soap and water only. Dry clean gauze changed daily or more frequently if it becomes soiled. Bactrim 1 tablet twice a day with food for the next 7 days. Return to the ER or your primary care doctor if your symptoms are worsening. Expect improvement after 3 to 4 days of antibiotics. Heat and compression as well as elevation as necessary for pain and swelling. Tylenol 1000 mg every 8 hours as necessary for pain. Ibuprofen 800 mg every 8 hours as necessary for pain. Scripts Sulfamethoxazole/Trimethoprim (Bactrim Ds Tablet) 1 Each Tablet 1 EACH PO BID for 7 Days, #14 TAB 0 Refills Prov: DEO AKBAR 09/24/20 DEO AKBAR Sep 24, 2020 16:28
[2020-09-24] MEDS ORDERED: SULF1TAB38 PO (16:45)
== END 2020-09-24 16:45 | disposition home or self-care (01) ==
LOC: EDUNIT# 16:14 → ER 16:18
DX: L02.512 Cutaneous abscess of left hand (principal)
CPT/HCPCS: 99282

== ENCOUNTER 2021-11-15 20:36 | Emergency (ER) | payer SELFPAY ==
[~2021-11-15 20:36] MED LIST changes: +CYCL10TA25 PO; -CYCL10TA9 PO
[2021-11-15] MEDS ORDERED: TETANUS,DIPTH,PERTUSS P/F (BOOSTRIX) 0.5 ML VIAL IM ONE (21:00)
--- NOTE | 2021-11-15 21:05 | ED Lower Extremity ---
General Chief Complaint: Lower Extremity Stated Complaint: L FOOT RED/SWELLING/PAIN History of Present Illness Date Seen by Provider: Nov 15, 2021 Time Seen by Provider: 20:50 Initial Comments 55-year-old male presents for erythema to his left foot with swelling and pain. He reports that his sensitivity started approximately 1 week ago and is progressively gotten worse with swelling and pain. He denies any injuries, stepping on anything, insect bites, or blisters to his left foot. He is not diabetic and does not currently smoke. No history of CAD. He initially thought it was gout, as his ankle hurt but then the redness spread to the dorsum of his foot. No Joint pain at this time and no history of gout. Onset: last week Pain/Injury Location: left foot Method of Injury: unknown Modifying Factors: Improves With Rest Allergies and Home Medications Allergies Coded Allergies: bacitracin (Unverified Allergy, Unknown, 09/19/14) neomycin (Unverified Allergy, Unknown, 09/19/14) polymyxin B (Unverified Allergy, Unknown, 09/19/14) Patient Home Medication List Home Medication List Reviewed: Yes Acetaminophen (Tylenol Extra Strength) 500 Mg Tablet, 1,000 MG PO Q8H PRN for PAIN-MILD (1-4), (Reported) Entered as Reported by: ELIZABETH GARCES on 05/07/19926 Cefdinir (Cefdinir) 300 Mg Capsule, 300 MG PO BID Prescribed by: VON LEWIS on 05/07/19 1115 Ibuprofen (Ibuprofen) 200 Mg Capsule, 400-600 MG PO Q8H PRN for PAIN-MILD (1-4), (Reported) Entered as Reported by: ELIZABETH GARCES on 05/07/19 09 Sulfamethoxazole/Trimethoprim (Bactrim Ds Tablet) 1 Each Tablet, 1 EACH PO BID Prescribed by: DEO AKBAR on 09/24/20 1645 Review of Systems Constitutional: no symptoms reported, see HPI Skin: see HPI, change in color (erythema) All Other Systems Reviewed Negative Unless Noted: Yes Past Uzqmsjq-Rtcvvr-Fngowx Hx Patient Social History Smoking Status: Former Smoker Use of E-Cig and/or Vaping dev: No Substance use?: No Alcohol Use?: No Pt feels they are or have been: No Immunizations Up To Date Tetanus Booster (TDap): Unknown Seasonal Allergies Seasonal Allergies: No Past Medical History Surgeries: Yes Respiratory: No Cardiac: No Neurological: No Reproductive Disorders: No Genitourinary: Yes Kidney Stones Gastrointestinal: Yes Hepatitis Musculoskeletal: No Endocrine: No Cancer: No Psychosocial: Yes (POLYSUBSTANCE ABUSE) Integumentary: No Blood Disorders: No Family Medical History Reviewed Nursing Family Hx Cardiovascular disease 19 MOTHER GRANDFATHER Neoplasm 19 MOTHER (BONE CANCER) G8 BROTHER ( WITHER FROM CANCER OR HEPATITIS) Respiratory disorder 19 FATHER No Pertinent Family Hx Physical Exam Vital Signs Vital Signs - First Documented 11/15/21 20:49 Temp 36.9 Pulse 86 Resp 18 B/P (MAP) 159/88 (111) Pulse Ox 99 O2 Delivery Room Air Capillary Refill : Height, Weight, BMI Height: 5'9.00" Weight: 165lbs. 3.0oz. 74.147642ax; 23.00 BMI Method:Stated General Appearance: WD/WN Cardiovascular: normal peripheral pulses, regular rate, rhythm, no edema, other (Neg Georgina's, Pedal Pulses 2+ bilatt) Respiratory: chest non-tender, lungs clear, normal breath sounds Gastrointestinal: normal bowel sounds, non tender, soft Ankles: left ankle non-tender, left ankle normal inspection, left ankle normal range of motion, left ankle soft tissue tenderness Feet: left foot pain, left foot soft tissue tenderness, left foot swelling, left foot other (erythema to dorsum of left foot, no puncture site, drainage or abscess. Mild soft tissue swelling. Ambulates with steady gait. ) Neurologic/Psychiatric: no motor/sensory deficits, alert, normal mood/affect, oriented x 3 Skin: normal color (Except left foot. ), warm/dry Procedures/Interventions Suture Size: 4-0 Progress/Results/Core Measures Results/Orders Lab Results Laboratory Tests Test 11/15/21 21:40 Range/Units White Blood Count 8.3 4.3-11.0 10^3/uL Red Blood Count 4.68 4.30-5.52 10^6/uL Hemoglobin 14.0 13.3-17.7 g/dL Hematocrit 41 40-54 % Mean Corpuscular Volume 88 80-99 fL Mean Corpuscular Hemoglobin 30 25-34 pg Mean Corpuscular Hemoglobin Concent 34 32-36 g/dL Red Cell Distribution Width 12.1 10.0-14.5 % Platelet Count 306 130-400 10^3/uL Mean Platelet Volume 9.4 9.0-12.2 fL Immature Granulocyte % (Auto) 0 % Neutrophils (%) (Auto) 63 42-75 % Lymphocytes (%) (Auto) 21 12-44 % Monocytes (%) (Auto) 11 0-12 % Eosinophils (%) (Auto) 5 0-10 % Basophils (%) (Auto) 1 0-10 % Neutrophils # (Auto) 5.2 1.8-7.8 10^3/uL Lymphocytes # (Auto) 1.7 1.0-4.0 10^3/uL Monocytes # (Auto) 0.9 0.0-1.0 10^3/uL Eosinophils # (Auto) 0.4 H 0.0-0.3 10^3/uL Basophils # (Auto) 0.1 0.0-0.1 10^3/uL Immature Granulocyte # (Auto) 0.0 0.0-0.1 10^3/uL Sodium Level 140 135-145 MMOL/L Potassium Level 4.2 3.6-5.0 MMOL/L Chloride Level 104 98-107 MMOL/L Carbon Dioxide Level 24 21-32 MMOL/L Anion Gap 12 5-14 MMOL/L Blood Urea Nitrogen 10 7-18 MG/DL Creatinine 0.72 0.60-1.30 MG/DL Estimat Glomerular Filtration Rate 109 BUN/Creatinine Ratio 14 Glucose Level 93 70-105 MG/DL Calcium Level 9.5 8.5-10.1 MG/DL Corrected Calcium 9.7 8.5-10.1 MG/DL Total Bilirubin 0.3 0.1-1.0 MG/DL Aspartate Amino Transf (AST/SGOT) 25 5-34 U/L Alanine Aminotransferase (ALT/SGPT) 36 0-55 U/L Alkaline Phosphatase 70 40-136 U/L C-Reactive Protein High Sensitivity 0.88 H 0.00-0.50 MG/DL Total Protein 7.4 6.4-8.2 GM/DL Albumin 3.8 3.2-4.5 GM/DL My Orders Orders - DOMINIQUE CHOI Cbc With Automated Diff (11/15/21 20:55) Comprehensive Metabolic Panel (11/15/21 20:55) Hs C Reactive Protein (11/15/21 20:55) Foot, Left, 3 Views (11/15/21 20:55) Dipht,Pertuss(Acell),Tet Adult (Boostrix (11/15/21 21:00) Rx-Cephalexin Capsule (Rx-Keflex Capsule (11/15/21 22:01) Ceftriaxone (Rocephin) (11/15/21 22:15) Lidocaine 1% Inj 20 Ml (Xylocaine 1% Inj (11/15/21 22:15) Vital Signs/I&O 11/15/21 11/15/21 20:49 22:20 Temp 36.9 Pulse 86 81 Resp 18 18 B/P (MAP) 159/88 (111) 143/83 Pulse Ox 99 99 O2 Delivery Room Air Room Air Diagnostic Imaging Diagonstic Imaging: Xray Plain Films/CT/US/NM/MRI: other (Foot) Comments NAME: AGUSTIN IRBY [facility] REC#: [id number] PT STATUS: REG ER : 1965 PHYSICIAN: DOMINIQUE CHOI ADMIT DATE: 11/15/21/ER Signed Date of Exam:11/15/21 FOOT, LEFT, 3 VIEWS INDICATION: Left foot pain. EXAMINATION: AP, oblique and lateral views of the left foot were obtained. FINDINGS: No fracture or acute bony abnormality is seen. There is no erosive bony lesion. Joint spaces appear unremarkable. IMPRESSION: Negative left foot. Dictated by: Dictated on workstation # [id number] Dict: 11/15/212123 Trans: 11/15/212221 [facility] [id number] Interpreted by: APRIL LOVE MD Electronically signed by: APRIL LOVE MD 11/15/212221 Departure Impression Primary Impression: Cellulitis of left foot Disposition: 01 HOME, SELF-CARE Condition: Improved Departure-Patient Inst. Decision time for Depature: 21:20 Referrals: ILSA DERAS MD NO,LOCAL PHYSICIAN (PCP) Primary Care Physician Patient Instructions: Cellulitis (Skin Infection), Adult (DC) Add. Discharge Instructions: Take antibiotics as prescribed. Paper Rx for Keflext 500 mg #21, 1 po TID provided, ([facility]ure down, unable to send electronically) Follow up with Dr. Deras in 2-3 days, sooner if not improving. Alternate Tylenol 650 mg and Ibuprofen 600 mg every 4 hours for pain or fever. Alternate heat and ice to left foot. Return to the Emergency Dept for new, urgent health care needs. All discharge instructions reviewed with patient and/or family. Voiced understanding. Copy Copies To 1: ILSA DERAS MD, AMY ARNP Nov 15, 2021 21:05
--- NOTE | 2021-11-15 21:32 | Diagnostic Imaging Report ---
INDICATION: Left foot pain. EXAMINATION: AP, oblique and lateral views of the left foot were obtained. FINDINGS: No fracture or acute bony abnormality is seen. There is no erosive bony lesion. Joint spaces appear unremarkable. IMPRESSION: Negative left foot. Dictated by: Dictated on workstation # [id number]
[2021-11-15 21:45] LABS: BASOPHILS # (AUTO) 0.1 10^3/uL (0.0-0.1); BASOPHILS % (AUTO) 1 % (0-10); EOSINOPHILS # (AUTO) 0.4 10^3/uL (0.0-0.3); EOSINOPHILS % (AUTO) 5 % (0-10); HEMATOCRIT 41 % (40-54); LYMPHOCYTES # (AUTO) 1.7 10^3/uL (1.0-4.0); LYMPHOCYTES % (AUTO) 21 % (12-44); MEAN CORPUSCULAR HEMOGLOBIN 30 pg (25-34); MEAN CORPUSCULAR HGB CONC 34 g/dL (32-36); MEAN CORPUSCULAR VOLUME 88 fL (80-99); MEAN PLATELET VOLUME 9.4 fL (9.0-12.2); MONOCYTES # (AUTO) 0.9 10^3/uL (0.0-1.0); MONOCYTES % (AUTO) 11 % (0-12); NEUTROPHILS # (AUTO) 5.2 10^3/uL (1.8-7.8); NEUTROPHILS % (AUTO) 63 % (42-75); PLATELET COUNT 306 10^3/uL (130-400); WHITE BLOOD COUNT 8.3 10^3/uL (4.3-11.0)
[2021-11-15 21:56] LABS: ALBUMIN 3.8 GM/DL (3.2-4.5); POTASSIUM 4.2 MMOL/L (3.6-5.0)
[2021-11-15 21:57] LABS: CALCIUM 9.5 MG/DL (8.5-10.1)
[2021-11-15 21:59] LABS: TOTAL PROTEIN 7.4 GM/DL (6.4-8.2)
[2021-11-15 22:00] LABS: BILIRUBIN,TOTAL 0.3 MG/DL (0.1-1.0)
[2021-11-15] MEDS ORDERED: RX-CEPHALEXIN (KEFLEX) 250 MG CAP PPK#4 PO STA (22:01)
[2021-11-15 22:02] LABS: CREATININE SERUM 0.72 MG/DL (0.60-1.30)
[2021-11-15] MEDS ORDERED: cefTRIAXone 1,000 MG VIAL IM ONE (22:15)
[2021-11-15] MEDS ORDERED: LIDOCAINE 1% INJ 20 ML VIAL INJ ONE (22:15)
[2021-11-15 22:20] VITALS: BP 143/83
== END 2021-11-15 22:20 | disposition home or self-care (01) ==
LOC: EDUNIT# 20:36 → ER 20:37
DX: L03.116 Cellulitis of left lower limb (principal); Z87.891 Personal history of nicotine dependence; Z88.1 Allergy status to other antibiotic agents; Z23 Encounter for immunization; Z28.310 Unvaccinated for COVID-19
CPT/HCPCS: 36415; 73630; 80053; 85025; 86141; 90715

== ENCOUNTER 2022-05-08 10:06 | Emergency (ER) | payer SELFPAY ==
[~2022-05-08] VITALS: Ht 175.3 cm; Wt 74.8 kg
--- NOTE | 2022-05-08 10:33 | ED General ---
General Stated Complaint: ACHY, HARD TO BREATHE, COUGH Source of Information: Patient Exam Limitations: No Limitations History of Present Illness Date Seen by Provider: May 08, 2022 Time Seen by Provider: 10:16 Initial Comments 56-year-old male presents to the emergency department today requesting a COVID test for work. He states yesterday he started having body aches, headaches and chills. He also had a mild cough that was nonproductive. He had COVID about a year ago and he states this feels similar. No changes in taste or smell. No sick contacts. All other systems reviewed and negative except documented per HPI. Voice recognition software was used to help create this chart Allergies and Home Medications Allergies Coded Allergies: bacitracin (Unverified Allergy, Unknown, 09/19/14) neomycin (Unverified Allergy, Unknown, 09/19/14) polymyxin B (Unverified Allergy, Unknown, 09/19/14) Patient Home Medication List Home Medication List Reviewed: Yes Acetaminophen (Tylenol Extra Strength) 500 Mg Tablet, 1,000 MG PO Q8H PRN for PAIN-MILD (1-4), (Reported) Entered as Reported by: ELIZABETH GARCES on 05/07/19 0927 Cefdinir (Cefdinir) 300 Mg Capsule, 300 MG PO BID Prescribed by: VON LEWIS on 05/07/19 1115 Ibuprofen (Ibuprofen) 200 Mg Capsule, 400-600 MG PO Q8H PRN for PAIN-MILD (1-4), (Reported) Entered as Reported by: ELIZABETH GARCES on 05/07/19 0927 Sulfamethoxazole/Trimethoprim (Bactrim Ds Tablet) 1 Each Tablet, 1 EACH PO BID Prescribed by: DEO AKBAR on 09/24/20 1645 Review of Systems Review of Systems Constitutional: chills, malaise Past Jpbahbe-Agjgit-Tdpwsc Hx Patient Social History Tobacco Use?: Yes Use of E-Cig and/or Vaping dev: No 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 Alcohol Use?: No Immunizations Up To Date Tetanus Booster (TDap): Unknown Seasonal Allergies Seasonal Allergies: No Past Medical History Surgeries: Yes Respiratory: No Cardiac: No Neurological: No Reproductive Disorders: No Genitourinary: Yes Kidney Stones Gastrointestinal: Yes Hepatitis Musculoskeletal: No Endocrine: No Cancer: No Psychosocial: Yes (POLYSUBSTANCE ABUSE) Integumentary: No Blood Disorders: No Family Medical History Cardiovascular disease 19 MOTHER GRANDFATHER Neoplasm 19 MOTHER (BONE CANCER) G8 BROTHER ( WITHER FROM CANCER OR HEPATITIS) Respiratory disorder 19 FATHER No Pertinent Family Hx Physical Exam Vital Signs Vital Signs - First Documented 05/08/22 10:16 Temp 37.8 Pulse 96 Resp 15 B/P (MAP) 134/79 (97) Pulse Ox 95 O2 Delivery Room Air Capillary Refill : Height, Weight, BMI Height: 5'9.00" Weight: 165lbs. 3.0oz. 74.840227ag; 23.00 BMI Method:Stated General Appearance: No Apparent Distress, WD/WN Eyes: Bilateral Eye Normal Inspection, Bilateral Eye PERRL, Bilateral Eye EOMI HEENT: PERRL/EOMI, Normal ENT Inspection, Pharynx Normal Neck: Normal Inspection, Non Tender, Supple Respiratory: Chest Non Tender, Lungs Clear, Normal Breath Sounds, No Accessory Muscle Use, No Respiratory Distress Cardiovascular: Regular Rate, Rhythm, No Edema, No Gallop, No JVD, No Murmur, Normal Peripheral Pulses Gastrointestinal: Normal Bowel Sounds, No Organomegaly, No Pulsatile Mass, Non Tender, Soft Extremity: Normal Capillary Refill, Normal Range of Motion, Non Tender, No Calf Tenderness, Other (Numerous scabs bilateral upper and lower extremities) Neurologic/Psychiatric: Alert, Oriented x3, No Motor/Sensory Deficits, Other (Speech is pressured) Skin: Warm/Dry, Other (Numerous scabs as documented above) Procedures/Interventions Suture Size: 4-0 Progress/Results/Core Measures Suspected Sepsis SIRS Temperature: Pulse: Respiratory Rate: Blood Pressure / Mean: Results/Orders Lab Results Laboratory Tests Test 05/08/22 10:36 Range/Units My Orders Orders - CHANELLE BARAHONA DO Covid 19 Inhouse Test (05/08/22 10:30) Vital Signs/I&O 05/08/22 05/08/22 10:16 10:16 Temp 37.8 Pulse 96 Resp 15 B/P (MAP) 134/79 (97) Pulse Ox 95 O2 Delivery Room Air Room Air Capillary Refill : Departure Communication (Admissions) Patient is hemodynamically stable with no red flag symptoms and normal vital signs. COVID test is positive. He is relatively asymptomatic outside of body aches and generally feeling unwell. No comorbidities. No indication for Paxlovid. Discharged in stable condition. Impression Primary Impression: COVID-19 Disposition: 01 HOME, SELF-CARE Condition: Stable Departure-Patient Inst. Referrals: NO,LOCAL PHYSICIAN (PCP/Family) Primary Care Physician Patient Instructions: COVID-19 (DC) Add. Discharge Instructions: COVID test is positive. Need to be fever free for 24 hours before returning to work. alternate ibuprofen and Tylenol as needed for fevers, body aches. Increase your fluids and rest. Return to the emergency department for any severe concerns. CHANELLE BARAHONA DO May 08, 2022 10:33
[2022-05-08 11:12] VITALS: BP 134/79
== END 2022-05-08 11:13 | disposition home or self-care (01) ==
LOC: EDUNIT# 10:06 → ER 10:07
DX: U07.1 COVID-19 (principal); M79.10 Myalgia, unspecified site; R50.9 Fever, unspecified
CPT/HCPCS: 87636; 99283

== ENCOUNTER 2022-07-04 20:09 | Emergency (ER) | payer SELFPAY ==
[~2022-07-04] VITALS: Ht 175.2 cm; Wt 74.9 kg
[2022-07-04 20:18] VITALS: BP 172/92
[2022-07-04] MEDS ORDERED: NS (IVPB) 250 ML IV ONE (20:45)
[2022-07-04] MEDS ORDERED: RX-OFLOXACIN 0.3% OPHTH SOLN 5 ML ONE (20:54)
--- NOTE | 2022-07-04 21:01 | ED EENT ---
History of Present Illness General Chief Complaint: Eye Problems Stated Complaint: DEBRI IN LEFT EYE Nursing Triage Note: Patient c/o left eye pain after getting debri in his eye. Patient states he was installing a shower when debri fell into his Left eye. Patient states the pain is a burning stabbing pain. Patient states his tetanus shot is less than 5 yrs. (DOMINIQUE CHOI) History of Present Illness Date Seen by Provider: Jul 04, 2022 Time Seen by Provider: 20:30 Initial Comments 56 year old male reports installing a new shower and debris from the ceiling was falling on his face. He did not have eye protection on. Since then, left eye has felt irritated and painful. No history of previous eye problems. Has not tried to irrigate eye. No obvious foreign body, reports normal vision. Timing/Duration: this afternoon Severity: moderate Location: eye (L) Prearrival Treatment: no prearrival treatment Associated Symptoms: denies symptoms (DOMINIQUE CHOI) Allergies and Home Medications Allergies Coded Allergies: bacitracin (Unverified Allergy, Unknown, 09/19/14) neomycin (Unverified Allergy, Unknown, 09/19/14) polymyxin B (Unverified Allergy, Unknown, 09/19/14) Patient Home Medication List Home Medication List Reviewed: Yes (DOMINIQUE CHOI) Acetaminophen (Tylenol Extra Strength) 500 Mg Tablet, 1,000 MG PO Q8H PRN for PAIN-MILD (1-4), (Reported) Entered as Reported by: ELIZABETH GARCES on 05/07/19926 Cefdinir (Cefdinir) 300 Mg Capsule, 300 MG PO BID Prescribed by: VON LEWIS on 05/07/19 1115 Ibuprofen (Ibuprofen) 200 Mg Capsule, 400-600 MG PO Q8H PRN for PAIN-MILD (1-4), (Reported) Entered as Reported by: ELIZABETH GARCES on 05/07/19926 Prednisolone/Moxifloxacin HCl (Prednisolone Acet 1%-Moxi 0.5%) 1 %-0.5 % Drops.susp, 3 DROP OP Q4H Prescribed by: DOMINIQUE CHOI on 07/04/222120 Sulfamethoxazole/Trimethoprim (Bactrim Ds Tablet) 1 Each Tablet, 1 EACH PO BID Prescribed by: DEO AKBAR on 09/24/20 1645 Review of Systems Review of Systems Constitutional: no symptoms reported, see HPI Eyes: See HPI, Drainage, Foreign Body Sensation, Inflammation, Pain (DOMINIQUE CHOI) All Other Systems Reviewed Negative Unless Noted: Yes (DOMINIQUE CHOI) Past Srklwtx-Qtgbas-Bkhhbp Hx Patient Social History Tobacco Use?: No Smoking Status: Former Smoker Use of E-Cig and/or Vaping dev: No Substance use?: Yes Substance type: Marijuana Substance frequency: Daily Alcohol Use?: Yes Alcohol Frequency: Once in a while Pt feels they are or have been: No (DOMINIQUE CHOI) Immunizations Up To Date Tetanus Booster (TDap): Unknown Influenza Vaccine Up-to-Date: No; Not Current (DOMINIQUE CHOI) Seasonal Allergies Seasonal Allergies: No (DOMINIQUE CHOI) Past Medical History Surgery/Hospitalization HX: Denies Surgeries: Yes Respiratory: No Cardiac: No Neurological: No Reproductive Disorders: No Genitourinary: Yes Kidney Stones Gastrointestinal: Yes Hepatitis Musculoskeletal: No Endocrine: No Cancer: No Psychosocial: Yes (POLYSUBSTANCE ABUSE) Integumentary: No Blood Disorders: No (DOMINIQUE CHOI) Family Medical History Reviewed Nursing Family Hx (DOMINIQUE CHOI) Cardiovascular disease 19 MOTHER GRANDFATHER Neoplasm 19 MOTHER (BONE CANCER) G8 BROTHER ( WITHER FROM CANCER OR HEPATITIS) Respiratory disorder 19 FATHER No Pertinent Family Hx (DOMINIQUE CHOI) Physical Exam Vital Signs Vital Signs - First Documented 07/04/22 20:18 Temp 36.6 Pulse 70 Resp 16 B/P (MAP) 172/92 (118) Pulse Ox 95 O2 Delivery Room Air ([facility]) Height, Weight, BMI Height: 5'9.00" Weight: 165lbs. 3.0oz. 74.131123px; 24.00 BMI Method:Stated General Appearance: WD/WN, no apparent distress Eyes: right eye normal inspection; left eye conjunctival inflammation; bilateral eye PERRL, bilateral eye EOMI Neck: non-tender, full range of motion, supple, normal inspection Cardiovascular: normal peripheral pulses, regular rate, rhythm Respiratory: chest non-tender, lungs clear, normal breath sounds Neurologic/Psychiatric: no motor/sensory deficits, alert, normal mood/affect, oriented x 3 Skin: normal color, warm/dry (ODMINIQUE CHOI) Procedures/Interventions Suture Size: 4-0 (DOMINIQUE CHOI) Progress/Results/Core Measures Results/Orders Blood Pressure Mean: 118 Progress Progress Note : Time: 20:30 Progress Note patient assessed, will irrigate left eye with yolanda lens and 250 ml of saline. 2044 some improvement after irrigation. Will instill 3-4 drops of tetracaine into left eye and re-evaluate 2099 patient reports improvement in pain and irritation. Antibiotic eye drops to left eye. Discharge instructions and return precautions reviewed. (DOMINIQUE CHOI) Departure Impression Primary Impression: Corneal abrasion Qualified Codes: S05.02XA - Injury of conjunctiva and corneal abrasion without foreign body, left eye, initial encounter Disposition: HOME, SELF-CARE Condition: Improved Departure-Patient Inst. Decision time for Depature: 21:00 (DOMINIQUE CHOI) Referrals: [facility]/EDUIN VÁZQUEZ OD NO,LOCAL PHYSICIAN (PCP) Primary Care Physician Patient Instructions: Corneal Abrasion (DC) Add. Discharge Instructions: Use eye drops as prescribed. Follow up with Eye Doctor or [facility], if not improving. Return to the Emergency Dept for New, Urgent healthcare needs. Wear eye protection, when around debris that could get into your eyes. All discharge instructions reviewed with patient and/or family. Voiced understanding. Scripts Prednisolone/Moxifloxacin HCl (Prednisolone Acet 1%-Moxi 0.5%) 1 %-0.5 % Drops.susp 3 DROP OP Q4H, #1 DROPS 0 Refills Prov: DOMINIQUE CHOI 07/04/22 ATTENDING PHYSICIAN NOTE: I WAS PHYSICALLY PRESENT ER PHYSICIAN, BUT I WAS NOT INVOLVED IN ANY DECISION MAKING OR ANY CARE OF THIS PATIENT, AND I AM NOT COLLABORATING PHYSICIAN. (SANTOS DURHAM DO) DOMINIQUE CHOI Jul 04, 2022 21:01 SANTOS DURHAM DO July 05, 2022 18:18
[2022-07-04] MEDS ORDERED: TETRACAINE 0.5% OPHTH SOLN 4 ML BTL (SINGLE DOSE ONLY) OP ONE (21:15)
[2022-07-04] MEDS ORDERED: PRED5DRO26 OP (21:21)
[2022-07-05] MEDS ORDERED: RX-OFLOXACIN 0.3% OPHTH SOLN 5 ML OP SCH
== END 2022-07-04 21:26 | disposition home or self-care (01) ==
LOC: EDUNIT# 20:09 → ER 20:12
DX: S05.02XA Injury of conjunctiva and corneal abrasion without foreign body, left eye, initial encounter (principal); Z87.891 Personal history of nicotine dependence; Z28.310 Unvaccinated for COVID-19; X58.XXXA Exposure to other specified factors, initial encounter
CPT/HCPCS: 99282

== ENCOUNTER 2023-02-01 22:35 | Emergency (ER) | payer SELFPAY ==
[~2023-02-01] VITALS: Ht 175.2 cm; Wt 75.0 kg
[~2023-02-01 22:35] MED LIST changes: +PRED5DRO26 OP
--- NOTE | 2023-02-01 22:51 | ED General ---
General Chief Complaint: Eye Problems Stated Complaint: BACK PAIN, NASAL CONGESTION, EYE PAIN Source of Information: Patient Exam Limitations: No Limitations History of Present Illness Date Seen by Provider: Feb 01, 2023 Time Seen by Provider: 22:51 Initial Comments Patient is a 57-year-old male who presents to the emergency room with a chief complaint of bilateral eye pain related to welding earlier today as well as some low back pain that has been present for about 2 weeks. Patient states that he went to urgent care a week ago and was told he had muscle strain. He cannot recall a specific trauma or injury. He has been taking ibuprofen 600 mg twice a day without relief. Today he was helping a friend [place], this evening developed eye pain, photophobia. States his last tetanus shot was 2 or 3 years ago. Denies numbness tingling or weakness to his lower extremities. Denies any incontinence. States sitting and walking make his back hurt worse. No prior back surgeries. Timing/Duration: 1-3 Hours (eye pain), 1 Week (back pain) Severity: Moderate Allergies and Home Medications Allergies Coded Allergies: bacitracin (Unverified Allergy, Unknown, 09/19/14) neomycin (Unverified Allergy, Unknown, 09/19/14) polymyxin B (Unverified Allergy, Unknown, 09/19/14) Patient Home Medication List Home Medication List Reviewed: Yes Acetaminophen (Tylenol Extra Strength) 500 Mg Tablet, 1,000 MG PO Q8H PRN for PAIN-MILD (1-4), (Reported) Entered as Reported by: ELIZABETH GARCES on 05/07/19926 Cefdinir (Cefdinir) 300 Mg Capsule, 300 MG PO BID Prescribed by: VON LEWIS on 05/07/19 111 Erythromycin Base (Erythromycin Opthalmic Ointment) 5 Mg/Gram (0.5 %) Oint...g., 0 OP Q6H Prescribed by: LEXUS STOVER on 02/01/23 232 Ibuprofen (Ibuprofen) 200 Mg Capsule, 400-600 MG PO Q8H PRN for PAIN-MILD (1-4), (Reported) Entered as Reported by: ELIZABETH GARCES on 05/07/19926 Methocarbamol (Methocarbamol) 750 Mg Tablet, 750 MG PO Q8H Prescribed by: LEXUS STOVER on 02/01/23 2320 Prednisolone/Moxifloxacin HCl (Prednisolone Acet 1%-Moxi 0.5%) 1 %-0.5 % Drops.susp, 3 DROP OP Q4H Prescribed by: DOMINIQUE CHOI on 07/04/222120 Sulfamethoxazole/Trimethoprim (Bactrim Ds Tablet) 1 Each Tablet, 1 EACH PO BID Prescribed by: DEO AKBAR on 09/24/20 1645 Review of Systems Review of Systems Constitutional: see HPI EENTM: eye pain, tearing Respiratory: no symptoms reported Cardiovascular: no symptoms reported Gastrointestinal: no symptoms reported Genitourinary: no symptoms reported Musculoskeletal: back pain Skin: no symptoms reported Psychiatric/Neurological: No Symptoms Reported Past Yhfibnn-Hdtthk-Zbybkz Hx Patient Social History Tobacco Use?: No Use of E-Cig and/or Vaping dev: No Substance use?: Yes Substance type: Marijuana Substance frequency: Daily Alcohol Use?: No Pt feels they are or have been: Unable to obtain Immunizations Up To Date Tetanus Booster (TDap): Unknown Influenza Vaccine Up-to-Date: No; Not Current Seasonal Allergies Seasonal Allergies: No Past Medical History Surgery/Hospitalization HX: Denies Surgeries: Yes Respiratory: No Cardiac: No Neurological: No Reproductive Disorders: No Genitourinary: Yes Kidney Stones Gastrointestinal: Yes Hepatitis Musculoskeletal: No Endocrine: No Cancer: No Psychosocial: Yes (POLYSUBSTANCE ABUSE) Integumentary: No Blood Disorders: No Family Medical History Cardiovascular disease 19 MOTHER GRANDFATHER Neoplasm 19 MOTHER (BONE CANCER) G8 BROTHER ( WITHER FROM CANCER OR HEPATITIS) Respiratory disorder 19 FATHER No Pertinent Family Hx Physical Exam Vital Signs Vital Signs - First Documented 02/01/23 22:48 Temp 36.4 Pulse 76 Resp 20 B/P (MAP) 149/82 (104) Pulse Ox 99 O2 Delivery Room Air Capillary Refill : Height, Weight, BMI Height: 5'9.00" Weight: 165lbs. 3.0oz. [id number]; 24.00 BMI Method:Stated General Appearance: WD/WN, Anxious Eyes: Bilateral Eye Normal Inspection, Bilateral Eye PERRL, Bilateral Eye EOMI, Bilateral Eye Photophobia, Bilateral Eye Other (very minimal uptake noted after staining both eyes and eval with priest lamp) HEENT: Other (necrotic carious teeth) Neck: Normal Inspection Respiratory: No Accessory Muscle Use, No Respiratory Distress Back: No Vertebral Tenderness, Other (neg Straight Leg Raise bilaterally; no loss of sensation; normal dorsiflexion bilateral feet) Extremity: Normal Inspection, Normal Range of Motion Neurologic/Psychiatric: Alert, Oriented x3, No Motor/Sensory Deficits, Normal Mood/Affect, sulfur burner II-XII Norm as Tested Skin: Normal Color, Warm/Dry Procedures/Interventions Suture Size: 4-0 Progress/Results/Core Measures Suspected Sepsis SIRS Temperature: Pulse: Respiratory Rate: Blood Pressure / Mean: Results/Orders My Orders Orders - LEXUS STOVER MD Fluorescein Ophthalmic Strips (Fluoresce (02/01/23 23:00) Balanced Salt Irrigation Soln (Bss Irrig (02/01/23 23:00) Orphenadrine Inj (Ed Only) (Orphenadrine (02/01/23 23:00) Ketorolac Injection (Ketorolac Injection (02/01/23 23:00) Rx-Oxycodone/Apap 5-325 Mg (Rx-Percocet (02/01/23 23:30) Medications Given in ED Current Medications Medications Dose Ordered Sig/Shubham Route Start Time Stop Time Status Last Admin Dose Admin Balanced Salt Solution 15 ml ONCE ONCE IR 02/01/23 23:00 02/01/23 23:01 DC 02/01/23 23:10 15 ML Fluorescein Sodium 1 mg ONCE ONCE OU 02/01/23 23:00 02/01/23 23:01 DC 02/01/23 23:10 1 MG Ketorolac Tromethamine 30 mg ONCE ONCE IM 02/01/23 23:00 02/01/23 23:01 DC 02/01/23 23:09 30 MG Orphenadrine Citrate 60 mg ONCE ONCE IM 02/01/23 23:00 02/01/23 23:01 DC 02/01/23 23:10 60 MG Oxycodone/ Acetaminophen 1 ea Q6H PRN PO 02/01/23 23:30 02/01/23 23:36 DC 02/01/23 23:31 1 EA Vital Signs/I&O 02/01/23 02/01/23 22:48 23:28 Temp 36.4 36.1 Pulse 76 74 Resp 20 20 B/P (MAP) 149/82 (104) 133/71 Pulse Ox 99 100 O2 Delivery Room Air Room Air Capillary Refill : Progress Note : Time: 23:09 Progress Note Patient seen and evaluated by me. Sparkle today includes history and physical exam with priest lamp exam of the bilateral eyes facilitated with fluorescein staining. Pertinent physical exam findings include thin, chronically ill appearing male, squinting in the light, tearing in mild-moderate distress due to eye pain,. He has some conjunctival/scleral injection bilaterally with equal pupils that are reactive. Poor dentition, regular heart rate, clear lungs, tenderness to palpation across the posterior SI joints. Negative straight leg raise bilaterally, intact sensation and strength in the bilateral lower extremities. No saddle anesthesia. Differential diagnosis includes musculoskeletal low back pain, corneal abrasion, UV keratitis Patient is treated in the emergency department with tetracaine local anesthesia to both eyes, fluorescein staining revealed minimal uptake bilaterally. No overt corneal abrasions are identified. He is provided 30 mg of Toradol IM and 60 mg of Norflex IM for his low back pain. Recommended follow-up with his primary care physician at [facility] for further evaluation and management of his back pain. Given a prescription for erythromycin eye ointment to apply 3 times a day for the next 2 or 3 days. Return precautions provided in both verbal and written format. All questions are sought and answered. Patient is improved at discharge. Departure Impression Primary Impression: UV keratitis Qualified Codes: H16.133 - Photokeratitis, bilateral Additional Impression: Low back pain Qualified Codes: M54.50 - Low back pain, unspecified Disposition: 01 HOME, SELF-CARE Condition: Stable Departure-Patient Inst. Decision time for Depature: 23:06 Referrals: [facility] (PCP/Family) Primary Care Physician Patient Instructions: Photokeratitis (arc eye) Add. Discharge Instructions: Use the antibiotics for your eyes as directed - ointment to both eyes, 3-4 times daily for 2-3 days. Take [id number] ibuprofen 3 tablets which is 600 mg, with food every 6 hours as needed for pain (both back and eye). You can use a heating pad on your back to the sore area as well as Biofreeze or IcyHot which you can get [id number]. Take the muscle relaxer every 8 hours for spasm/pain. Please follow-up with your provider at [facility]. Return to the emergency department for any new, concerning or emergent complaints. Scripts Erythromycin Base (Erythromycin Opthalmic Ointment) 5 Mg/Gram (0.5 %) Oint...g. 0 OP Q6H for 3 Days, #1 EA 1/2 inch to both eyes 3-4 times a day for 2-3 days Prov: LEUXS STOVER MD 02/01/23 Methocarbamol (Methocarbamol) 750 Mg Tablet 750 MG PO Q8H for Back Pain, #10 TAB Prov: LEXUS STOVER MD 02/01/23 Copy Copies To 1: EUGENIE CHAND KATHRYN M MD Feb 01, 2023 22:51
[2023-02-01] MEDS ORDERED: BSS 15 ML IR ONE (23:00)
[2023-02-01] MEDS ORDERED: ORPHENADRINE 60 MG/2 ML AMP (ED ONLY) IM ONE (23:00)
[2023-02-01] MEDS ORDERED: FLUORESCEIN 1 MG OPHTHALMIC STRIPS OU ONE (23:00)
[2023-02-01] MEDS ORDERED: KETOROLAC INJ 30 MG/ML VIAL IM ONE (23:00)
[2023-02-01] MEDS ORDERED: METH-732 PO (23:20)
[2023-02-01] MEDS ORDERED: ERYT1OIN6 OP (23:20)
[2023-02-01 23:28] VITALS: BP 133/71
[2023-02-01] MEDS ORDERED: RX-OXYCODONE/APAP 5-325 MG #4 TAB PK PO PRN (23:30)
== END 2023-02-01 23:35 | disposition home or self-care (01) ==
LOC: EDUNIT# 22:35 → ER 22:39
DX: H16.133 Photokeratitis, bilateral (principal); M54.50 Low back pain, unspecified
CPT/HCPCS: 99284